=== PATIENT | female | born 1955 | race Caucasian/White ===

== ENCOUNTER 2024-03-23 12:53 | Inpatient (IN) | payer MEDICARE, OTHER, SELFPAY ==
[2024-03-23] VITALS (11 sets, daily range): BP systolic 94–125; BP diastolic 45–96; BMI 22.7
[2024-03-23 09:36] LABS: Glucose - Point of Care 100 mg/dl (70-99)
--- NOTE | 2024-03-23 09:51 | ED.GENMED ---
History of Present Illness
General
Chief Complaint: Blood Sugar Problem
Source: patient
Exam Limitations: none
Time Seen by Provider: 03/23/24 09:30
History of Present Illness
History of Present Illness:
68-year-old female brought here by EMS from [facility] after staff at facility thought she was in cardiac arrest. They called EMS. They soon figured out that her blood sugar was very low. They administered oral glucose. She was
semiunresponsive upon EMS arrival but had. First sugar checked upon EMS arrival was 31. EMS gave D10 en route. She now has been alert since arriving here. No history of diabetes. She does have a history of dementia.
Phy Exam
Physical Exam
Physical Exam:
General: Well-developed female no acute respiratory distress
Neurologic: Alert no facial asymmetry following commands no drift on exam
Heart: Bradycardia but regular
Lungs: Clear no wheeze
Abdomen is soft nontender nondistended
Extremities: No cyanosis
Skin cool to the touch no rash
Course
Orders/Labs/Results
Orders:
Orders
03/23/24 09:41
CT Head W/o Iv Contrast Urgent
Comment:
Reason For Exam: confusion
03/23/24 09:42
Electrocardiogram (*1) Urgent
Reason for Study: Chest Pain
EKG- Treatment ONCE
03/23/24 09:48
Complete Blood Count/With Diff Urgent
Comprehensive Metabolic Panel Urgent
TSH Reflex To Free T4 Urgent
03/23/24 09:49
CR Chest Portable - 1 View Urgent
Comment:
Reason For Exam: weakness
Reason Study Needs to be Portable: Patient Unstable
03/23/24 10:08
Lactic Acid Q4H
Comment: CANCEL 2nd LACTIC ACID IF 1st LACTIC ACID IS LESS THAN 2
Blood Culture Urgent
[place] Source: Blood/Venous
Specimen Description:
03/23/24 10:09
Urinalysis Reflex To Culture Urgent
Date Specimen was Collected: 03/23/24
Time Specimen was Collected: 10:07
Urine Microscopic Reflex Cult Urgent
Urine Culture Urgent
[place] Source: U
Specimen Description:
Date Specimen was Collected: 03/23/24
Time Specimen was Collected: 10:07
03/23/24 12:12
Blood Culture Urgent
[place] Source: Blood/Venous
Specimen Description:
03/23/24 12:20
CefTRIAXone [Rocephin] 1,000 mg IV NOW STA
03/23/24 14:00
Lactic Acid Q4H
Comment: CANCEL 2nd LACTIC ACID IF 1st LACTIC ACID IS LESS THAN 2
Abnormal Lab Results
03/23/24 03/23/24 03/23/24
09:34 09:48 10:08
RBC 3.57 L 10^6/uL
(4.20-5.40)
Hgb 11.9 L g/dL
(12.0-16.0)
Hct 36.5 L %
(37.0-47.0)
MCV 102.2 H fL
(81.0-99.0)
MCH 33.3 H pg
(27.0-31.0)
MCHC 32.6 L g/dL
(33.0-37.0)
MPV 11.0 H fL
(7.4-10.4)
Abs Immat Gran (auto) 0.1 H 10^3/uL
(0-0.05)
Absolute Lymphs (auto) 0.7 L 10^3/uL
(1.2-3.4)
Immature Gran % 1.0 H %
(0-0.5)
Neutrophils % 81.6 H %
(42.2-75.2)
Lymphocytes % 9.4 L %
(20.5-51.1)
BUN 32 H mg/dl
(7-17)
Glucose 231 H mg/dl
(70-99)
Lactic Acid 3.8 H mmol/L
(0.7-2.0)
Total Bilirubin < 0.1 L mg/dl
(0.2-1.3)
Urine Nitrite (Reflex)
Leukocyte Esterase Rfl
Urine Bacteria (Reflex)
Urine Glucose
POC Glucose 100 H mg/dl
(70-99)
03/23/24
10:09
RBC
Hgb
Hct
MCV
MCH
MCHC
MPV
Abs Immat Gran (auto)
Absolute Lymphs (auto)
Immature Gran %
Neutrophils %
Lymphocytes %
BUN
Glucose
Lactic Acid
Total Bilirubin
Urine Nitrite (Reflex) Positive A
(Negative)
Leukocyte Esterase Rfl Trace A
(Negative)
Urine Bacteria (Reflex) Many A
(Negative)
Urine Glucose 3+ A
(Negative)
POC Glucose
03/23/24 09:48
03/23/24 09:48
Vital Signs
Initial and Last Documented VS:
Initial Vital Signs
Pulse Resp BP Pulse Ox
58 20 125/77 99
03/23/24 09:31 03/23/24 09:31 03/23/24 09:31 03/23/24 09:31
Last Documented Vital Signs
Temp Pulse Resp BP Pulse Ox
92.1 F L 47 11 101/53 100
03/23/24 09:41 03/23/24 11:00 03/23/24 11:00 03/23/24 11:00 03/23/24 11:00
MDM/Problems Addressed
Differential Diagnosis Includes:
Patient with hypoglycemia status post oral glucose and D10 en route. Sugar now 100 at bedside. Patient is bradycardic she is hypothermic as well with a temperature of 92. Concern for underlying infectious source we will do so including blood
cultures urine culture chest x-ray CAT scan. TSH pending as well given the hypothermia and bradycardia.
No diabetic medication noted on list to be a cause of the hypoglycemia.
EKG done at bedside shows sinus bradycardia with a rate of 51 no ischemic changes
*Critical Care Note
Total Time (30-74mins, 75-104mins- exclusive of procedures): Not Applicable
Update Note
Update Note:
Recheck sugar improved. Patient's rectal temperature was hypothermic. Urinalysis suspicious for UTI. CT head shows possible hydrocephalus. X-ray of chest negative. Patient at neurologic baseline. Rocephin ordered for UTI will admit to hospital
for hypothermia, hypoglycemia and UTI
ED Attending Note
-
Portions of this chart may have been created with voice recognition software.� Occasional wrong word or��sound alike� substitutions may have occurred due to the inherent limitations of voice recognition software.
Discharge Plan
Departure
Patient Disposition: Admit
Date of Disposition: 03/23/24
Time of Disposition: 12:22
Admit to: IMU
Presentation/result/management discussed w/ accepting MD/DO: Hospitalist
Discharge Problem:
Hypothermia, Hypoglycemia, Acute UTI
Prescriptions:
No Action
cyclobenzaprine [Flexeril] 10 mg Tablet
10 mg PO TIDPRN PRN (Reason: muscle spasms)
acetaminophen [Tylenol] 325 mg Tablet
650 mg PO Q4HPRN PRN (Reason: mild pain)
acetaminophen [Tylenol] 325 mg Tablet
650 mg PO Q6HPRN PRN (Reason: moderate pains)
meloxicam [Mobic] 15 mg Tablet
15 mg PO DAILY
valacyclovir 500 mg Tablet
500 mg PO DAILY
lorazepam 0.5 mg Tablet
0.5 mg PO DAILYPRN PRN (Reason: anxiety)
calcium carbonate [Calcium 500] 500 mg calcium (1,250 mg) Tablet
500 mg PO DAILY
valproic acid (as sodium salt) 250 mg/5 mL Solution
100 mg PO TID
levothyroxine [Synthroid] 50 mcg Tablet
50 mcg PO DAILY
venlafaxine 37.5 mg Tablet
37.5 mg PO Q48H
Rx Instructions:
take until 03/28/24
lisinopril 10 mg Tablet
10 mg PO DAILY
mirtazapine [Remeron] 15 mg Tablet
15 mg PO HS
memantine 5 mg Tablet
10 mg PO DAILY
melatonin 5 mg Tablet
5 mg PO HS
cholecalciferol (vitamin D3) [Vitamin D3] 50 mcg (2,000 unit) Tablet
50 mcg PO DAILY
Referrals:
Robbie Martinez I., DO [Family Provider] -
Interventions
Interventions:
*Risk Screen - Suicide Last Done: 03/23/24 09:31
*General Assessment Last Done: 03/23/24 09:31
*Neglect/Abuse Screening Last Done: 03/23/24 09:31
*ED COVID-19 Vaccine History Last Done: 03/23/24 11:35
Discharge Date and Time
Print Language: VIETNAMESE
[2024-03-23 09:57] LABS: % Basophils 0.4 % (0-2); % Lymphocytes 9.4 % (20.5-51.1); % Monocytes 7.6 % (1.7-9.3); % Neutrophils 81.6 % (42.2-75.2); Absolute Immature Granulocytes 0.1 10^3/uL (0-0.05); Absolute Lymphocytes 0.7 10^3/uL (1.2-3.4); Absolute Monocytes 0.6 10^3/uL (0.1-0.6); Absolute Neutrophils 6.4 10^3/uL (1.4-6.5); Hematocrit 36.5 % (37.0-47.0); Hemoglobin 11.9 g/dL (12.0-16.0); Mean Corp Hgb Conc. 32.6 g/dL (33.0-37.0); Mean Corpuscular Hgb 33.3 pg (27.0-31.0); Mean Corpuscular Volume 102.2 fL (81.0-99.0); Nucleated Red Blood Cells % 0 %; Platelet Count 221 10^3/uL (130-400); Red Blood Cell Count 3.57 10^6/uL (4.20-5.40); Red Cell Dist. Width 11.8 % (11.5-14.5); White Blood Cell Count 7.8 10^3/uL (4.8-10.8)
[2024-03-23 10:10] LABS: ALT (SGPT) 15 U/L (0-35); AST (SGOT) 24 U/L (14-36); Albumin 3.8 g/dl (3.5-5.0); Alkaline Phosphatase 71 U/L (38-126); Blood Urea Nitrogen 32 mg/dl (7-17); Calcium 8.8 mg/dl (8.4-10.2); Carbon Dioxide 25 mmol/L (22-30); Chloride 104 mmol/L (98-107); Glucose 231 mg/dl (70-99); Potassium 3.7 mmol/L (3.5-5.1); Sodium 141 mmol/L (135-145); Total Bilirubin < 0.1 mg/dl (0.2-1.3); Total Protein 6.6 g/dl (6.3-8.2); eGFR > 60.00
[2024-03-23 10:26] LABS: Lactic Acid 3.8 mmol/L (0.7-2.0)
[2024-03-23 10:41] LABS: TSH Reflex To Free T4 4.65 uIU/ml (0.47-4.68)
[2024-03-23 10:44] LABS: Urine Albumin Negative (Neg - Trace); Urine Bilirubin Negative (Negative); Urine Character Clear (Clear); Urine Color Yellow; Urine Glucose 3+ (Negative); Urine Ketone Negative (Negative); Urine Leukocyte Trace (Negative); Urine Nitrite Positive (Negative); Urine Occult Blood Negative (Negative); Urine Urobilinogen Negative (Neg - 1+)
[2024-03-23 10:58] LABS: Urine Bacteria Many (Negative); Urine Red Blood Cell 0-2 /HPF (0-2); Urine Squamous Cell 16-20 /LPF (Few)
--- NOTE | 2024-03-23 12:52 | HPS.HSE ---
Family Physician
-
Family Physician: Robbie Martinez
Chief Complaint
-
unresponsiveness
History of Present Illness
68-year-old female past medical history of dementia, anxiety/depression, spinal stenosis, hypertension, hypothyroidism, chronic anemia, presenting from [facility] after she was found unresponsive and staff thought that she was in
cardiac arrest. Chest compressions were performed briefly until staff noticed that she was hypoglycemic with blood sugar of 31. Oral glucose was administered. She was semiunresponsive upon EMS arrival. EMS noted blood sugar of 31. D10 was given
en route. Patient complaining of urinary symptoms but otherwise denying any other symptoms although she is a very poor historian.
No history of diabetes.
Medical History
Past Medical History
Past Medical History: Reports Other (dementia, anxiety/depression, spinal stenosis, hypertension, hypothyroidism, chronic anemia)
Past Surgical History: Reports None
Social History
Tobacco: Non-smoker
Alcohol: None
Drug: None
Family History
Family History: Not pertinent
Allergies / Home Medications
Allergies reflects when Allergies were last updated in [facility].
Home Medications with original date entered in [facility]
Allergy/Medication List:
Allergies
Allergy/AdvReac Type Severity Reaction Status Date / Time
No Known Allergies Allergy Verified 03/23/24 09:41
Home Medications
acetaminophen 325 mg tablet (Tylenol) 650 mg PO Q4HPRN PRN mild pain 03/23/24
acetaminophen 325 mg tablet (Tylenol) 650 mg PO Q6HPRN PRN moderate pains 03/23/24
calcium carbonate 500 mg PO DAILY 03/23/24
cholecalciferol (vitamin D3) 50 mcg (2,000 unit) tablet (Vitamin D3) 50 mcg PO DAILY 03/23/24
cyclobenzaprine 10 mg tablet 10 mg PO TIDPRN PRN muscle spasms 03/23/24
levothyroxine 50 mcg tablet (Synthroid) 50 mcg PO DAILY 03/23/24
lisinopril 10 mg tablet 10 mg PO DAILY 03/23/24
lorazepam 0.5 mg tablet 0.5 mg PO DAILYPRN PRN anxiety 03/23/24
melatonin 5 mg tablet 5 mg PO HS 03/23/24
meloxicam 15 mg tablet 15 mg PO DAILY 03/23/24
memantine 5 mg tablet 10 mg PO DAILY 03/23/24
mirtazapine 15 mg tablet (Remeron) 15 mg PO HS 03/23/24
valacyclovir 500 mg tablet 500 mg PO DAILY 03/23/24
valproic acid (as sodium salt) 250 mg/5 mL oral solution 100 mg PO TID 03/23/24
venlafaxine 37.5 mg tablet 37.5 mg PO Q48H 03/23/24
Review of Systems
-
History Source: Patient
A 12 point ROS was completed and negative except as noted: Yes
Constitutional: Reports No Symptoms
EENT: Reports No Symptoms
Respiratory: Reports No Symptoms
Cardiac: Reports No Symptoms
Abdomen/GI: Reports No Symptoms
: Reports No Symptoms
Musculoskeletal: Reports No Symptoms
Skin: Reports No Symptoms
Neurological: Reports No Symptoms
Endocrine: Reports No Symptoms
Hematologic/Lymphatic: Reports No Symptoms
Psych: Reports No Symptoms
Physical Exam
Vital Signs
Vital Signs
Temp Pulse Resp BP Pulse Ox
93 F L 47 11 101/53 100
03/23/24 12:00 03/23/24 11:00 03/23/24 11:00 03/23/24 11:00 03/23/24 11:00
Physical Exam
General: Well Developed, Well Nourished and No Apparent Distress
HEENT: NormoCephalic, Moist mucous membranes and Atraumatic
Respiratory: Clear
Cardiac: S1/S2 and Regular Rhythm; No Murmur or Rub
GI: Soft, Non Tender, Non Distended, Normal Bowel Sounds and Tender (suprapubic ); No Organomegaly
Rectal: Deferred by Provider
Musculoskeletal: No Clubbing, No Cyanosis and No Edema
Skin: No Rash
Neuro: Nonfocal/grossly intact
Laboratory Results
-
03/23/24 09:48
03/23/24 09:48
Laboratory Results
Lactic Acid 3.8 mmol/L (0.7-2.0) H 03/23/24 10:08
Total Bilirubin < 0.1 mg/dl (0.2-1.3) L 03/23/24 09:48
AST 24 U/L (14-36) 03/23/24 09:48
ALT 15 U/L (0-35) 03/23/24 09:48
Alkaline Phosphatase 71 U/L (38-126) 03/23/24 09:48
Data Reviewed
-
Lab Data: Labs Reviewed by me
Old Records: Reviewed
Impression/Plan
-
IMPRESSION:
PLAN:
# Hypoglycemia possibly secondary to UTI
# Hypothermia/sinus bradycardia secondary to hypoglycemia
-No documented history of diabetes or diabetic medications
-Blood sugar of 100 then 230 here
-Accu-Cheks every hour for now and can decrease frequency once blood sugar stable
-Chest x-ray unremarkable
-CT head shows no acute abnormality
-Urinalysis with positive nitrates, trace leukocyte esterase but clear urine with only 6-10 WBC and urinary symptoms with suprapubic tenderness
-Lactic acid 3.8, trend lactate
-IV fluids
-On Adrian hugger
-Blood cultures pending
-Check TSH, cortisol level
# Urinary tract infection
-Patient with urinary symptoms and suprapubic tenderness
-Ceftriaxone
Dementia
-Continue memantine
Anxiety/depression
-Continue mirtazapine, valproic acid, venlafaxine, Ativan
-No documented history of seizures
Chronic anemia
-stable
Hypothyroidism
-Continue levothyroxine
Essential hypertension
-Continue lisinopril
Spinal stenosis
-Continue cyclobenzaprine, meloxicam
Full code
DVT prophylaxis�heparin
Regular diet
[2024-03-23 13:30] LABS: Glucose - Point of Care 42 mg/dl (70-99)
[2024-03-23] MEDS: ROCEPHIN 1000 MG IV (13:41)
[2024-03-23] MEDS: NSS 250 IV (13:41)
[2024-03-23 13:48] LABS: Glucose - Point of Care 38 mg/dl (70-99)
[2024-03-23] MEDS: DEXTROSE 50% SYRINGE 25 GRAMS IV (13:54)
[2024-03-23 14:27] LABS: Glucose - Point of Care 124 mg/dl (70-99)
[2024-03-23 14:37] LABS: Cortisol, Random 36.6 ug/dl
[2024-03-23 14:56] LABS: Glucose - Point of Care 119 mg/dl (70-99)
[2024-03-23] MEDS: ATIVAN 0.5 MG PO (15:13)
[2024-03-23] MEDS: EFFEXOR 37.5 MG PO (15:14)
[2024-03-23] MEDS: DEPAKENE 100 MG PO ×2 (15:15→22:08)
[2024-03-23] MEDS: D5/0.9% SODIUM CHLORIDE 1000 IV (15:18)
[2024-03-23 16:44] LABS: Glucose - Point of Care 107 mg/dl (70-99)
--- NOTE | 2024-03-23 17:38 | PTCARENOTE ---
Patient is very confused only oriented to self only. She is hallucinating and is agitated. At the moment she can't be reoriented or redirected. Constantly trying to climb out of bed, activating bed alarm. Upon arrival from ED medicated her with
po ativan with little help. Notified attending order obtained for restraints and haldol. IV fluids infusing as ordered via right ac site. Blood sugars have been above 100. Temperatures have been normal. Will monitor frequently.
[2024-03-23 17:40] LABS: Lactic Acid 3.5 mmol/L (0.7-2.0)
[2024-03-23] MEDS: HALDOL 1 MG IV (18:02)
[2024-03-23 18:57] LABS: Glucose - Point of Care 123 mg/dl (70-99)
[2024-03-23] MEDS: HEPARIN 5000 UNITS SC (19:43)
[2024-03-23 20:16] LABS: Glucose - Point of Care 77 mg/dl (70-99)
[2024-03-23 21:29] LABS: Glucose - Point of Care 87 mg/dl (70-99)
[2024-03-23] MEDS: MELATONIN 5 MG PO (22:08)
[2024-03-23 22:12] LABS: Glucose - Point of Care 86 mg/dl (70-99)
[2024-03-23 23:13] LABS: Glucose - Point of Care 97 mg/dl (70-99)
[2024-03-24] VITALS (14 sets, daily range): BP systolic 92–147; BP diastolic 50–117; BMI 23.0
[2024-03-24 00:20] LABS: Glucose - Point of Care 68 mg/dl (70-99)
[2024-03-24] MEDS: D10W 1000 IV ×2 (00:47→16:58)
[2024-03-24 01:15] LABS: Glucose - Point of Care 96 mg/dl (70-99)
[2024-03-24 02:18] LABS: Glucose - Point of Care 99 mg/dl (70-99)
[2024-03-24 03:15] LABS: Glucose - Point of Care 103 mg/dl (70-99)
[2024-03-24 03:21] LABS: Lactic Acid 2.1 mmol/L (0.7-2.0)
[2024-03-24 04:36] LABS: Glucose - Point of Care 106 mg/dl (70-99)
[2024-03-24] MEDS: HALDOL 1 MG IV (05:07)
[2024-03-24] MEDS: SYNTHROID 50 MCG PO (05:07)
[2024-03-24 05:09] LABS: % Basophils 0.3 % (0-2); % Eosinophils 0.3 % (0-6); % Immature Granulocytes 0.6 % (0-0.5); % Lymphocytes 14.8 % (20.5-51.1); % Monocytes 7.3 % (1.7-9.3); % Neutrophils 76.7 % (42.2-75.2); Absolute Basophils 0.1 10^3/uL (0-0.2); Absolute Eosinophils 0.1 10^3/uL (0-0.7); Absolute Immature Granulocytes 0.1 10^3/uL (0-0.05); Absolute Lymphocytes 2.3 10^3/uL (1.2-3.4); Absolute Monocytes 1.1 10^3/uL (0.1-0.6); Absolute Neutrophils 11.9 10^3/uL (1.4-6.5); Hematocrit 28.8 % (37.0-47.0); Hemoglobin 9.7 g/dL (12.0-16.0); Mean Corp Hgb Conc. 33.7 g/dL (33.0-37.0); Mean Corpuscular Volume 101.1 fL (81.0-99.0); Mean Platelet Volume 11.9 fL (7.4-10.4); Nucleated Red Blood Cells % 0 %; Platelet Count 199 10^3/uL (130-400); Red Blood Cell Count 2.85 10^6/uL (4.20-5.40); Red Cell Dist. Width 11.9 % (11.5-14.5); White Blood Cell Count 15.5 10^3/uL (4.8-10.8)
[2024-03-24 05:15] LABS: ALT (SGPT) 13 U/L (0-35); AST (SGOT) 23 U/L (14-36); Alkaline Phosphatase 58 U/L (38-126); Blood Urea Nitrogen 20 mg/dl (7-17); Calcium 8.7 mg/dl (8.4-10.2); Carbon Dioxide 26 mmol/L (22-30); Chloride 107 mmol/L (98-107); Estimated Creatinine Clearance 70 ml/min; Glucose 101 mg/dl (70-99); Potassium 3.9 mmol/L (3.5-5.1); Sodium 141 mmol/L (135-145); Total Bilirubin 0.1 mg/dl (0.2-1.3); Total Protein 5.8 g/dl (6.3-8.2); eGFR > 60.00
[2024-03-24 05:26] LABS: Glucose - Point of Care 72 mg/dl (70-99)
[2024-03-24 06:17] LABS: Glucose - Point of Care 84 mg/dl (70-99)
[2024-03-24 06:57] LABS: Lactic Acid 1.5 mmol/L (0.7-2.0)
[2024-03-24 07:34] LABS: Glucose - Point of Care 69 mg/dl (70-99)
[2024-03-24 07:53] LABS: Glucose - Point of Care 61 mg/dl (70-99)
[2024-03-24] MEDS: DEXTROSE 50% SYRINGE 12.5 GRAMS IV ×4 (08:09→12:29)
[2024-03-24 08:17] LABS: Glucose - Point of Care 70 mg/dl (70-99)
[2024-03-24 08:46] LABS: Glucose - Point of Care 133 mg/dl (70-99)
[2024-03-24] MEDS: VITAMIN D3 (cholecalciferol) 50 MCG PO (08:56)
[2024-03-24] MEDS: OSCAL CAL 500 500 MG PO (08:56)
[2024-03-24] MEDS: MOBIC 15 MG PO (08:57)
[2024-03-24] MEDS: DEPAKENE 100 MG PO ×3 (08:57→21:32)
[2024-03-24] MEDS: VALTREX 500 MG PO (08:57)
[2024-03-24] MEDS: NAMENDA 10 MG PO (08:57)
[2024-03-24] MEDS: HEPARIN 5000 UNITS SC ×2 (08:57→20:10)
[2024-03-24 09:23] LABS: Glucose - Point of Care 56 mg/dl (70-99)
[2024-03-24 09:43] LABS: Glucose - Point of Care 78 mg/dl (70-99)
--- NOTE | 2024-03-24 09:55 | PTCARENOTE ---
Assumed care of patient at beginnig of this shift from previous RN. Per report patient had several accu checks overnight requiring intervention; currently has D10 infusing at 60ml/hr. Initial accu check this shift was 69; patient given orange juice
as per protocol. Recheck was 61; another orange juice given to patient. Dr Fair notified and instructed to give 1/2 amp D50. Follow up accu checks were 70 at 08:06 and 133 at 08:35. Accu check at 09:11 was 56. Blood sugar rechecked for accuracy
and was 92 as she had juice prior to the 56. Patient then received breakfast and had 2 juices as well as pudding with morning medications. Accu check 78 at 09:31.
--- NOTE | 2024-03-24 10:08 | CM ---
Patient from [facility] with Hx dementia with Dx Hypoglycemia, UTI. Room air. Receiving IVF, IV Abx, IV Haldol prn. Per nursing; confused, restraints.
Spoke with [facility];
the patient resides there in LTC on an AK bed hold.
She is A/O x1 at baseline.
The patient is assisted with ADLs and ambulatory without using an assistive device.
She was not receiving PT/OT.
Spoke with Thomas Butts, Court Appointed Guardian;
He stated he will not indicate if he agrees with the patient returning to [facility] when she is medically ready, as he expects CM to call him when closer to d/c and he will indicate at that time if he agrees to the patient returning to [facility]
and if he agrees to d/c at that time. Attempted to explain that if there is any issue with the patient returning to [facility] that the CM needs to know in advance, so as to work with him on choosing another facility. He states he will not agree
to anything in advance as he had another case in which a CM did not contact him about a patient leaving the hospital and therefore he will not agree to anything for this patient.
Renea Velazquez, CM Director informed that Court Appointed Guardian refused to indicate if he would agree with patient returning to [facility] when she is medically ready for d/c.
Plan contact Court Appointed Guardian when medically ready for d/c for permission to return patient to [facility].
[2024-03-24 10:14] LABS: Depakane 38.6 ug/ml (50.0-120.0)
[2024-03-24 10:52] LABS: Glucose - Point of Care 41 mg/dl (70-99)
--- NOTE | 2024-03-24 10:58 | PTCARENOTE ---
Accu check 41. Dr Fair notified and order given for another 1/2 amp D50 ordered and given. Patient was drowsy but arousable. Follow up glucose 113.
[2024-03-24 11:12] LABS: Glucose - Point of Care 113 mg/dl (70-99)
[2024-03-24] MEDS: ZESTRIL PO (11:31)
[2024-03-24] MEDS: STERILE WATER FOR INJECTION 10 ML IV (11:48)
[2024-03-24] MEDS: ROCEPHIN 1000 MG IV (11:48)
[2024-03-24 12:10] LABS: Glucose - Point of Care 44 mg/dl (70-99)
--- NOTE | 2024-03-24 12:18 | PTCARENOTE ---
Addendum entered by Ana Laura Lee RN 03/24/24 17:42:
No call from chemistry needing further lab samples.
Original Note:
Accu check 44; 1/2 amp D50 given and Dr Fair updated. 15 minute post check 130. Dr Fair up on unit and made aware; instructed to give another 1/2 amp. Octreotide ordered; confirmed with pharmacy they will send. Enma from chemistry called
to verify lab ordered was to test for a specific med or full panel. Dr Fair confirmed that it is a plasma panel. This nurse called and updated Enma who will run panel. She stated she will call unit only if needing another lab sample.
[2024-03-24] MEDS: DEXTROSE 50% SYRINGE IV (12:25)
[2024-03-24] MEDS: SANDOSTATIN 50 MCG IV (12:25)
[2024-03-24 12:29] LABS: Glucose - Point of Care 130 mg/dl (70-99)
[2024-03-24 12:29] LABS: Glycohemoglobin (HgbA1c) 5.1 % (4.0-5.6)
[2024-03-24 12:57] LABS: Glucose - Point of Care 128 mg/dl (70-99)
[2024-03-24 13:43] LABS: Glucose - Point of Care 62 mg/dl (70-99)
[2024-03-24 14:08] LABS: Glucose - Point of Care 70 mg/dl (70-99)
--- NOTE | 2024-03-24 14:21 | W.PN.HOSP.TC ---
Today's Communication/Plan
-
Close blood glucose monitoring.
Workup for hypoglycemia
IV antibiotics pending cultures.
Protective interventions/restraints
Assessment / Plan
Assessment / Plan
Impression:
Toxic metabolic encephalopathy secondary to UTI and hypoglycemia.
Hypoglycemia with transient hypothermia, sinus bradycardia, hypotension.
UTI with concern for sepsis.
Lactic acidosis.
Other conditions:
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
Anxiety/depression
Hypothyroidism on replacement
Anemia of chronic disease
Essential hypertension
Spinal stenosis.
Plan
Toxic metabolic encephalopathy suspect multifactorial due to UTI with concern for sepsis and hypoglycemia
Mental status improved and back to baseline patient is oriented to only name
Follow-up episode of agitation, currently improved and calm.
CT head without acute abnormalities.
Hypoglycemia been corrected.
UTI with concern for sepsis
Reported transient hypothermia, hypoglycemia
Noted elevated white count of 15.5.
Positive UA pending culture (preliminary gram-negative bacteria)
Blood cultures pending.
Continue empiric antibiotics/ceftriaxone pending final cultures
Monitor for urinary retention.
Improved hypothermia
TSH within normal limits.
Continue levothyroxine
No evidence of CHF clinically and radiologically.
Persistent hypoglycemia.
Normal cortisol and TSH level.
Appears to be hemodynamically stable
No prior history of diabetes
Not on any possible glucose lowering medications hold once that glucose hypoglycemic side effect
Check serum sulfonylurea panel.
Check C-peptide level.
Empiric treatment with Sandostatin
Continue blood glucose monitoring every hour
Continue D50 as needed and D10 infusion
Dementia, anxiety, depression
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 Not clear if he has a history of seizures or this used for behavioral disturbances.
Depakote level 38.6 on admission. Continue preadmission dose.
Continue memantine
Continue protective intervention, restraints. Wean off Haldol.
Continue mirtazapine, tamoxifen, Ativan.
Hypertension
Holding parameters for hypotension on lisinopril.
Spinal stenosis: Continue cyclobenzaprine and hold meloxicam
DVT prophylaxis heparin
Full code
Anticipated Discharge: 24 - 48 hours
Subjective/Interval History
-
Date of Service: March 24, 2024
Objective Data
-
Labs:
Laboratory Results
03/24/24
04:24
WBC 15.5 H
Hgb 9.7 L
Hct 28.8 L
Plt Count 199
Sodium 141
Potassium 3.9
Chloride 107
Carbon Dioxide 26
BUN 20 H
Creatinine 0.7
Glucose 101 H
Calcium 8.7
Total Bilirubin 0.1 L
AST 23
ALT 13
Alkaline Phosphatase 58
Vital Signs:
Vital Signs
Temp Pulse Resp BP Pulse Ox
97.8 F 64 12 104/51 99
03/24/24 11:00 03/24/24 12:00 03/24/24 12:00 03/24/24 12:00 03/24/24 12:00
I&O
03/23/24 03/24/24 03/25/24
06:59 06:59 06:59
Intake Total 2320 / 2320
Balance 2320 / 2320
Physical Exam
-
General: Well Developed and No Apparent Distress
HEENT: Normocephalic, Atraumatic and Moist Mucous Membranes
Respiratory: Clear to Auscultation
Cardiac: Regular Rhythm and S1/S2; Negative Murmur, Rub or Gallop
GI: Soft, Nontender, Nondistended and Normal Bowel Sounds; Negative Organomegaly
Rectal: Deferred by Provider
Musculoskeletal: No Clubbing, No Cyanosis and No Edema
Skin: Negative Rash
Neuro: Awake, Alert, Oriented (To name only) and Nonfocal/Grossly Intact
[2024-03-24 15:11] LABS: Glucose - Point of Care 105 mg/dl (70-99)
[2024-03-24 16:23] LABS: Glucose - Point of Care 157 mg/dl (70-99)
[2024-03-24 17:15] LABS: Glucose - Point of Care 128 mg/dl (70-99)
--- NOTE | 2024-03-24 17:52 | PTCARENOTE ---
This nurse spoke with Erin, nurse from [facility], who stated she sent a packet with patient when she was transferred to this hospital. No packet is in her chart. Erin stated she would fax over to our unit; fax number provided.
[2024-03-24 18:12] LABS: Glucose - Point of Care 93 mg/dl (70-99)
[2024-03-24 19:21] LABS: Glucose - Point of Care 119 mg/dl (70-99)
--- NOTE | 2024-03-24 20:19 | PTCARENOTE ---
Pt received from dayshift RN. Pt confused, alert to self, can answer yes and no appropriately, pleasant and cooperative. Q1 glucose maintained. Not needing hypoglycemic tx thus far during this RN's shift. Pt inc urine. PW in use. B/L wrist
restraints maintained, per order. Call light in reach. Assessment as documented.
[2024-03-24 20:20] LABS: Glucose - Point of Care 94 mg/dl (70-99)
[2024-03-24 21:17] LABS: Glucose - Point of Care 66 mg/dl (70-99)
[2024-03-24] MEDS: MELATONIN 5 MG PO (21:32)
[2024-03-24 21:39] LABS: Glucose - Point of Care 121 mg/dl (70-99)
[2024-03-24 22:06] LABS: Glucose - Point of Care 102 mg/dl (70-99)
[2024-03-24 23:07] LABS: Glucose - Point of Care 102 mg/dl (70-99)
[2024-03-25] VITALS (11 sets, daily range): BP systolic 107–137; BP diastolic 58–91; BMI 22.8
[2024-03-25 00:05] LABS: Glucose - Point of Care 74 mg/dl (70-99)
[2024-03-25 01:09] LABS: Glucose - Point of Care 117 mg/dl (70-99)
[2024-03-25 02:05] LABS: Glucose - Point of Care 120 mg/dl (70-99)
[2024-03-25] MEDS: D10W 1000 IV ×2 (02:29→12:11)
[2024-03-25 03:06] LABS: Glucose - Point of Care 108 mg/dl (70-99)
[2024-03-25 04:10] LABS: Glucose - Point of Care 94 mg/dl (70-99)
[2024-03-25 05:05] LABS: % Basophils 0.6 % (0-2); % Eosinophils 3.1 % (0-6); % Immature Granulocytes 0.5 % (0-0.5); % Lymphocytes 21.6 % (20.5-51.1); % Monocytes 11.4 % (1.7-9.3); % Neutrophils 62.8 % (42.2-75.2); Absolute Basophils 0.1 10^3/uL (0-0.2); Absolute Eosinophils 0.4 10^3/uL (0-0.7); Absolute Immature Granulocytes 0.1 10^3/uL (0-0.05); Absolute Lymphocytes 2.7 10^3/uL (1.2-3.4); Absolute Monocytes 1.4 10^3/uL (0.1-0.6); Absolute Neutrophils 7.8 10^3/uL (1.4-6.5); Hematocrit 34.3 % (37.0-47.0); Hemoglobin 11.5 g/dL (12.0-16.0); Mean Corp Hgb Conc. 33.5 g/dL (33.0-37.0); Mean Corpuscular Volume 101.5 fL (81.0-99.0); Mean Platelet Volume 11.3 fL (7.4-10.4); Nucleated Red Blood Cells % 0 %; Platelet Count 200 10^3/uL (130-400); Red Blood Cell Count 3.38 10^6/uL (4.20-5.40); Red Cell Dist. Width 11.8 % (11.5-14.5); White Blood Cell Count 12.4 10^3/uL (4.8-10.8)
[2024-03-25 05:12] LABS: Glucose - Point of Care 66 mg/dl (70-99)
[2024-03-25] MEDS: SYNTHROID 50 MCG PO (05:23)
[2024-03-25 05:29] LABS: ALT (SGPT) 15 U/L (0-35); AST (SGOT) 26 U/L (14-36); Albumin 3.2 g/dl (3.5-5.0); Alkaline Phosphatase 62 U/L (38-126); Blood Urea Nitrogen 21 mg/dl (7-17); Carbon Dioxide 32 mmol/L (22-30); Chloride 104 mmol/L (98-107); Estimated Creatinine Clearance 61 ml/min; Glucose 99 mg/dl (70-99); Potassium 4.4 mmol/L (3.5-5.1); Sodium 142 mmol/L (135-145); Total Bilirubin 0.3 mg/dl (0.2-1.3); eGFR > 60.00
[2024-03-25 05:33] LABS: Glucose - Point of Care 87 mg/dl (70-99)
--- NOTE | 2024-03-25 05:37 | PTCARENOTE ---
pts 5am glucose was 66, pt given 40z of juice per protocol. 15 minute recheck was 87. pt remains awake and alert.
[2024-03-25 06:08] LABS: Glucose - Point of Care 69 mg/dl (70-99)
[2024-03-25 06:46] LABS: Glucose - Point of Care 103 mg/dl (70-99)
[2024-03-25 07:13] LABS: Glucose - Point of Care 92 mg/dl (70-99)
[2024-03-25 08:14] LABS: Glucose - Point of Care 44 mg/dl (70-99)
[2024-03-25] MEDS: VITAMIN D3 (cholecalciferol) 50 MCG PO (08:28)
[2024-03-25] MEDS: ZESTRIL 10 MG PO (08:28)
[2024-03-25] MEDS: NAMENDA 10 MG PO (08:28)
[2024-03-25] MEDS: DEPAKENE 100 MG PO ×3 (08:28→21:50)
[2024-03-25] MEDS: HEPARIN 5000 UNITS SC ×2 (08:28→19:45)
[2024-03-25] MEDS: OSCAL CAL 500 500 MG PO (08:28)
[2024-03-25] MEDS: VALTREX 500 MG PO (08:28)
[2024-03-25 08:35] LABS: Glucose - Point of Care 55 mg/dl (70-99)
[2024-03-25] MEDS: DEXTROSE 50% SYRINGE 12.5 GRAMS IV ×2 (08:53→12:07)
[2024-03-25 09:02] LABS: Glucose - Point of Care 29 mg/dl (70-99)
--- NOTE | 2024-03-25 09:23 | PTCARENOTE ---
Assumed care of pt from parole agent RN. AAOx1. Oriented only to self. Pt drowsy but arousable to voice. Fingerstick glucose at 0802 resulted at 44mg/dl. 4oz of orange juice given as treatment. Repeat fingerstick glucose 15 minutes after treatment
resulted at 55mg/dl. 4oz of orange juice given again as additional treatment. Fingerstick glucose result 15 minutes after additional treatment resulted at 29mg/dl. Dr. Fair aware. 12.5 grams 50% Dextrose IV given as treatment. Repeat fingerstick
glucose 15 mins after treatment resulted 144mg/dl. Pt resting in bed at this time. B/L soft wrist restraints remain on at this time and 4 side rails up. VSS. Assessment documented.
[2024-03-25 09:30] LABS: Glucose - Point of Care 144 mg/dl (70-99)
[2024-03-25 10:29] LABS: Glucose - Point of Care 71 mg/dl (70-99)
[2024-03-25 11:30] LABS: Glucose - Point of Care 91 mg/dl (70-99)
[2024-03-25] MEDS: ROCEPHIN 1000 MG IV (11:49)
[2024-03-25] MEDS: STERILE WATER FOR INJECTION 10 ML IV (11:50)
[2024-03-25 12:17] LABS: Glucose - Point of Care 64 mg/dl (70-99)
[2024-03-25 12:51] LABS: Glucose - Point of Care 99 mg/dl (70-99)
[2024-03-25 13:28] LABS: Glucose - Point of Care 77 mg/dl (70-99)
[2024-03-25] MEDS: SANDOSTATIN 50 MCG IV (13:46)
[2024-03-25] MEDS: CORTROSYN 0.25 MG IV (14:05)
[2024-03-25] MEDS: NSS (PRESERVATIVE FREE) 1 ML IV (14:05)
[2024-03-25] MEDS: EFFEXOR 37.5 MG PO (14:13)
[2024-03-25 14:21] LABS: Glucose - Point of Care 78 mg/dl (70-99)
[2024-03-25 15:06] LABS: ACTH Stim Cortisol 0 Min 7.1 ug/dl
[2024-03-25 15:15] LABS: Glucose - Point of Care 114 mg/dl (70-99)
[2024-03-25 16:16] LABS: Glucose - Point of Care 244 mg/dl (70-99)
--- NOTE | 2024-03-25 16:32 | W.PN.HOSP.TC ---
Today's Communication/Plan
-
Remains hypoglycemic and relatively asymptomatic (hard to assess given dementia)
Ongoing workup with C-peptide, serum sulfonylurea pending.
Stable oral intake
Continue D10 infusion with D50 IV for severe hypoglycemia.
Repeat Sandostatin second dose today 50 mcg given.
Follow serial Accu-Cheks.
ACTH stim test
Ultrasound of the abdomen to look at the liver architecture (so far no evidence of hepatic dysfunction)
If remains persistently hypoglycemic, will do further workup including proinsulin/insulin levels at the time of hypoglycemia.
May require additional abdominal imaging along with lab workup.
Assessment / Plan
Assessment / Plan
Impression:
Toxic metabolic encephalopathy secondary to UTI and hypoglycemia.
Hypoglycemia with transient hypothermia, sinus bradycardia, hypotension.
UTI with concern for sepsis.
Lactic acidosis.
Other conditions:
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
Anxiety/depression
Hypothyroidism on replacement
Anemia of chronic disease
Essential hypertension
Spinal stenosis.
Plan
Toxic metabolic encephalopathy suspect multifactorial due to UTI with concern for sepsis and hypoglycemia
Mental status improved and back to baseline patient is oriented to only name
Follow-up episode of agitation, currently improved and calm.
CT head without acute abnormalities.
Hypoglycemia been corrected.
UTI with concern for sepsis
Reported transient hypothermia, hypoglycemia
Noted elevated white count of 15.5.
Urine culture with Klebsiella
Blood cultures negative to date
Continue empiric antibiotics/ceftriaxone pending final cultures
Monitor for urinary retention.
Improved hypothermia
TSH within normal limits.
Continue levothyroxine
No evidence of CHF clinically and radiologically.
Persistent hypoglycemia.
Normal cortisol and TSH level.
Appears to be hemodynamically stable
No prior history of diabetes
Not on any possible glucose lowering medications hold once that glucose hypoglycemic side effect
Check serum sulfonylurea panel.
Check C-peptide level.
Empiric treatment with Sandostatin
Continue blood glucose monitoring every hour
Continue D50 as needed and D10 infusion
Dementia, anxiety, depression
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 Not clear if he has a history of seizures or this used for behavioral disturbances.
Depakote level 38.6 on admission. Continue preadmission dose.
Continue memantine
Continue protective intervention, restraints. Wean off Haldol.
Continue mirtazapine, tamoxifen, Ativan.
Hypertension
Holding parameters for hypotension on lisinopril.
Spinal stenosis: Continue cyclobenzaprine and hold meloxicam
DVT prophylaxis heparin
Full code
Anticipated Discharge: > 48 hours
Subjective/Interval History
-
Date of Service: March 25, 2024
Objective Data
-
Labs:
Laboratory Results
03/25/24
04:46
WBC 12.4 H
Hgb 11.5 L
Hct 34.3 L
Plt Count 200
Sodium 142
Potassium 4.4
Chloride 104
Carbon Dioxide 32 H
BUN 21 H
Creatinine 0.8
Glucose 99
Calcium 9.0
Total Bilirubin 0.3
AST 26
ALT 15
Alkaline Phosphatase 62
Vital Signs:
Vital Signs
Temp Pulse Resp BP Pulse Ox
98.7 F 69 14 118/62 99
03/25/24 15:55 03/25/24 16:00 03/25/24 16:00 03/25/24 14:00 03/25/24 16:00
I&O
03/24/24 03/25/24 03/26/24
06:59 06:59 06:59
Intake Total 2320 / 2320 1560 / 1560 300 / 300
Output Total 2750 / 2750 600 / 600
Balance 2320 / 2320 -1190 / -1190 -300 / -300
[2024-03-25 16:52] LABS: ACTH Stim Cortisol 60 Min 26.6 ug/dl
[2024-03-25 16:53] LABS: ACTH Stim Cortisol 30 Min 19.9 ug/dl
[2024-03-25 17:23] LABS: Glucose - Point of Care 193 mg/dl (70-99)
[2024-03-25 18:14] LABS: Glucose - Point of Care 167 mg/dl (70-99)
[2024-03-25 19:25] LABS: Glucose - Point of Care 224 mg/dl (70-99)
[2024-03-25 20:12] LABS: Glucose - Point of Care 207 mg/dl (70-99)
--- NOTE | 2024-03-25 21:15 | PTCARENOTE ---
Received patient from previous RN. Patient is confused and restless, alert to self. Patient does answer yes or no question but has confused conversation. Patient is corporative. Patient is on Q1 blood glucose checks, not needing hypoglycemic
treatment thus far on shift. Patient has a purewick due to incontinence. Patient is in bilateral wrist restraints, per order. Patient resting in bed with call matthews in reach. Assessment as documented.
[2024-03-25 21:16] LABS: Glucose - Point of Care 187 mg/dl (70-99)
[2024-03-25] MEDS: MELATONIN 5 MG PO (21:50)
[2024-03-25 22:09] LABS: Glucose - Point of Care 117 mg/dl (70-99)
[2024-03-25 23:18] LABS: Glucose - Point of Care 178 mg/dl (70-99)
[2024-03-25] MEDS: ATIVAN 0.5 MG PO (23:48)
[2024-03-26] VITALS (14 sets, daily range): BP systolic 89–137; BP diastolic 49–97; BMI 22.9
[2024-03-26 00:11] LABS: Glucose - Point of Care 124 mg/dl (70-99)
[2024-03-26] MEDS: D10W 1000 IV ×2 (01:01→11:18)
[2024-03-26 01:14] LABS: Glucose - Point of Care 118 mg/dl (70-99)
[2024-03-26 02:37] LABS: Glucose - Point of Care 129 mg/dl (70-99)
[2024-03-26 02:42] LABS: C-Peptide 1.8 ng/mL (0.5-3.3)
[2024-03-26 03:18] LABS: Glucose - Point of Care 133 mg/dl (70-99)
[2024-03-26 04:11] LABS: Glucose - Point of Care 106 mg/dl (70-99)
[2024-03-26 05:19] LABS: Glucose - Point of Care 100 mg/dl (70-99)
[2024-03-26] MEDS: SYNTHROID 50 MCG PO (05:56)
[2024-03-26 06:11] LABS: Glucose - Point of Care 123 mg/dl (70-99)
--- NOTE | 2024-03-26 06:16 | PTCARENOTE ---
Patient getting a cortisol resp ACTH test done this AM. Talked to IV nurse about test. Morning labs to be drawn at the time of test by CORPORATE DEVELOPMENT MANAGER.
[2024-03-26 07:35] LABS: Glucose - Point of Care 120 mg/dl (70-99)
[2024-03-26 08:20] LABS: Glucose - Point of Care 124 mg/dl (70-99)
[2024-03-26] MEDS: FLEXERIL 10 MG PO ×2 (09:25→16:37)
[2024-03-26 09:27] LABS: Glucose - Point of Care 97 mg/dl (70-99)
[2024-03-26 09:34] LABS: % Basophils 0.4 % (0-2); % Eosinophils 2.5 % (0-6); % Immature Granulocytes 0.4 % (0-0.5); % Lymphocytes 25.2 % (20.5-51.1); % Monocytes 8.7 % (1.7-9.3); % Neutrophils 62.8 % (42.2-75.2); Absolute Basophils 0.1 10^3/uL (0-0.2); Absolute Eosinophils 0.3 10^3/uL (0-0.7); Absolute Immature Granulocytes 0.1 10^3/uL (0-0.05); Absolute Monocytes 1.1 10^3/uL (0.1-0.6); Absolute Neutrophils 7.6 10^3/uL (1.4-6.5); Hematocrit 34.4 % (37.0-47.0); Hemoglobin 11.5 g/dL (12.0-16.0); Mean Corp Hgb Conc. 33.4 g/dL (33.0-37.0); Mean Corpuscular Hgb 33.3 pg (27.0-31.0); Mean Corpuscular Volume 99.7 fL (81.0-99.0); Mean Platelet Volume 11.5 fL (7.4-10.4); Nucleated Red Blood Cells % 0 %; Platelet Count 213 10^3/uL (130-400); Red Blood Cell Count 3.45 10^6/uL (4.20-5.40); Red Cell Dist. Width 11.7 % (11.5-14.5); White Blood Cell Count 12.1 10^3/uL (4.8-10.8)
[2024-03-26] MEDS: VALTREX 500 MG PO (09:36)
--- NOTE | 2024-03-26 10:07 | PTCARENOTE ---
Assumed care of patient this AM. No events reported overnight. Patient oriented to self only. Continued need for restraints. Patient angry, agitated combative and uncooperative. Patient NPO for abdominal US. IV fluids D10@100 mls/hr infusing
as ordered. Q1H accuchecks as per MD orders. SR on monitor. VS stable. Will continue to monitor frequently.
[2024-03-26 10:30] LABS: Glucose - Point of Care 73 mg/dl (70-99)
[2024-03-26] MEDS: HEPARIN 5000 UNITS SC ×2 (10:47→20:57)
[2024-03-26] MEDS: VITAMIN D3 (cholecalciferol) 50 MCG PO (10:47)
[2024-03-26] MEDS: OSCAL CAL 500 500 MG PO (10:47)
[2024-03-26] MEDS: DEPAKENE 100 MG PO ×3 (10:47→22:16)
[2024-03-26] MEDS: ZESTRIL 10 MG PO (10:47)
[2024-03-26] MEDS: NAMENDA 10 MG PO (10:47)
[2024-03-26 11:32] LABS: Glucose - Point of Care 127 mg/dl (70-99)
[2024-03-26 11:48] LABS: Blood Urea Nitrogen 17 mg/dl (7-17); Calcium 8.7 mg/dl (8.4-10.2); Carbon Dioxide 26 mmol/L (22-30); Chloride 105 mmol/L (98-107); Estimated Creatinine Clearance 61 ml/min; Glucose 90 mg/dl (70-99); Potassium 3.8 mmol/L (3.5-5.1); Sodium 144 mmol/L (135-145); eGFR > 60.00
[2024-03-26 12:56] LABS: Glucose - Point of Care 134 mg/dl (70-99)
[2024-03-26] MEDS: STERILE WATER FOR INJECTION 10 ML IV (13:18)
[2024-03-26] MEDS: ROCEPHIN 1000 MG IV (13:19)
[2024-03-26 14:37] LABS: Glucose - Point of Care 101 mg/dl (70-99)
[2024-03-26 15:56] LABS: Glucose - Point of Care 123 mg/dl (70-99)
--- NOTE | 2024-03-26 16:01 | W.PN.HOSP.TC ---
Today's Communication/Plan
-
Continue antibiotics
Wean off IV fluids with glucose
Monitor for recurrent hypoglycemia.
Assessment / Plan
Assessment / Plan
Impression:
Toxic metabolic encephalopathy secondary to UTI and hypoglycemia.
Hypoglycemia with transient hypothermia, sinus bradycardia, hypotension.
UTI with concern for sepsis.
Lactic acidosis.
Other conditions:
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
Anxiety/depression
Hypothyroidism on replacement
Anemia of chronic disease
Essential hypertension
Spinal stenosis.
Plan
Toxic metabolic encephalopathy suspect multifactorial due to UTI with concern for sepsis and hypoglycemia
Mental status improved and back to baseline patient is oriented to only name
Follow-up episode of agitation, currently improved and calm.
CT head without acute abnormalities.
Hypoglycemia been corrected.
UTI with concern for sepsis
Reported transient hypothermia, hypoglycemia
Noted elevated white count of 15.5.
Urine culture with Klebsiella
Blood cultures negative to date
Continue antibiotics/ceftriaxone pending final cultures
Monitor for urinary retention.
Improved hypothermia
TSH within normal limits.
Continue levothyroxine
No evidence of CHF clinically and radiologically.
Persistent hypoglycemia.
Normal cortisol and TSH level.
Appears to be hemodynamically stable
No prior history of diabetes
Not on any possible glucose lowering medications hold once that glucose hypoglycemic side effect
Check serum sulfonylurea panel.
C-peptide level with no elevation when drawn at the relative euglycemia
Random cortisol as well as ACTH them with no indication of hypoadrenal state
With stable mental status and oral intake, with no IV glucose
Continue Accu-Cheks.
Dementia, anxiety, depression
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 Not clear if he has a history of seizures or this used for behavioral disturbances.
Depakote level 38.6 on admission. Continue preadmission dose.
Continue memantine
Continue protective intervention, restraints. Wean off Haldol.
Continue mirtazapine, tamoxifen, Ativan.
Hypertension
Holding parameters for hypotension on lisinopril.
Spinal stenosis: Continue cyclobenzaprine and hold meloxicam
DVT prophylaxis heparin
Full code
Anticipated Discharge: 24 - 48 hours
Subjective/Interval History
-
Date of Service: March 26, 2024
Objective Data
-
Labs:
Laboratory Results
03/26/24
09:19
WBC 12.1 H
Hgb 11.5 L
Hct 34.4 L
Plt Count 213
Sodium 144
Potassium 3.8
Chloride 105
Carbon Dioxide 26
BUN 17
Creatinine 0.8
Glucose 90
Calcium 8.7
Vital Signs:
Vital Signs
Temp Pulse Resp BP Pulse Ox
97.7 F 62 10 123/70 97
03/26/24 11:30 03/26/24 08:00 03/26/24 08:00 03/26/24 08:00 03/26/24 08:00
I&O
03/25/24 03/26/24 03/27/24
06:59 06:59 06:59
Intake Total 1560 / 1560 300 / 300 480 / 480
Output Total 2750 / 2750 1100 / 1100
Balance -1190 / -1190 -800 / -800 480 / 480
Physical Exam
-
General: Well Developed and No Apparent Distress
HEENT: Normocephalic, Atraumatic and Moist Mucous Membranes
Respiratory: Clear to Auscultation
Cardiac: Regular Rhythm and S1/S2; Negative Murmur, Rub or Gallop
GI: Soft, Nontender, Nondistended and Normal Bowel Sounds; Negative Organomegaly
Rectal: Deferred by Provider
Musculoskeletal: No Clubbing, No Cyanosis and No Edema
Skin: Negative Rash
Neuro: Awake, Alert, Oriented (To name only) and Nonfocal/Grossly Intact
[2024-03-26] MEDS: D10W IV (16:15)
[2024-03-26] MEDS: TYLENOL 650 MG PO (16:36)
[2024-03-26 17:03] LABS: Glucose - Point of Care 410 mg/dl (70-99)
--- NOTE | 2024-03-26 17:10 | CM ---
Patient from [facility] with Hx dementia with Dx TME secondary to UTI and hypoglycemia, concern for sepsis. Room air. Receiving IVF, IV Abx. Abdominal U/S today. Per nursing; confused, restless, agitated and uncooperative, in restraints.
Message to Dr Fair: Noting closer to d/c, and have concern re; patient's ongoing agitation/restraints for return to SNF.
*Per prior CM notes, Thomas Butts, Court Appointed Guardian, wants phone call on day of d/c re; patient's return to [facility].
Plan contact Court Appointed Guardian when medically ready for d/c for permission to return patient to [facility].
[2024-03-26 17:55] LABS: Glucose - Point of Care 94 mg/dl (70-99)
[2024-03-26 18:57] LABS: Glucose - Point of Care 104 mg/dl (70-99)
[2024-03-26 19:39] LABS: Glucose - Point of Care 427 mg/dl (70-99)
[2024-03-26 21:11] LABS: Glucose - Point of Care 321 mg/dl (70-99)
[2024-03-26 22:15] LABS: Glucose - Point of Care 332 mg/dl (70-99)
[2024-03-26] MEDS: MELATONIN 5 MG PO (22:16)
--- NOTE | 2024-03-26 23:14 | PTCARENOTE ---
Received patient from previous RN. Patient is orientated to self and confused. Patient is in bilateral wrist restraints. VVS and assessment documented. Patient is on Q1 blood sugar checks. Last few blood sugars were in the 300s, ACID CUTTER aware.
Continuing Q1 checks. Patient is resting in bed with call matthews in reach.
[2024-03-26 23:41] LABS: Glucose - Point of Care 116 mg/dl (70-99)
[2024-03-27] VITALS (12 sets, daily range): BP systolic 93–114; BP diastolic 45–85; BMI 23.0
[2024-03-27 00:45] LABS: Glucose - Point of Care 390 mg/dl (70-99)
[2024-03-27 01:47] LABS: Glucose - Point of Care 99 mg/dl (70-99)
[2024-03-27 02:43] LABS: Glucose - Point of Care 106 mg/dl (70-99)
[2024-03-27 03:45] LABS: Glucose - Point of Care 95 mg/dl (70-99)
[2024-03-27 04:54] LABS: Glucose - Point of Care 101 mg/dl (70-99)
[2024-03-27] MEDS: SYNTHROID 50 MCG PO (05:43)
[2024-03-27 06:00] LABS: Glucose - Point of Care 126 mg/dl (70-99)
[2024-03-27 06:15] LABS: % Basophils 0.7 % (0-2); % Eosinophils 5.3 % (0-6); % Immature Granulocytes 0.6 % (0-0.5); % Lymphocytes 32.5 % (20.5-51.1); % Monocytes 8.1 % (1.7-9.3); % Neutrophils 52.8 % (42.2-75.2); Absolute Basophils 0.1 10^3/uL (0-0.2); Absolute Eosinophils 0.5 10^3/uL (0-0.7); Absolute Immature Granulocytes 0.1 10^3/uL (0-0.05); Absolute Lymphocytes 3.1 10^3/uL (1.2-3.4); Absolute Monocytes 0.8 10^3/uL (0.1-0.6); Absolute Neutrophils 5.1 10^3/uL (1.4-6.5); Hematocrit 34.7 % (37.0-47.0); Hemoglobin 11.6 g/dL (12.0-16.0); Mean Corp Hgb Conc. 33.4 g/dL (33.0-37.0); Mean Corpuscular Volume 101.8 fL (81.0-99.0); Mean Platelet Volume 11.2 fL (7.4-10.4); Nucleated Red Blood Cells % 0 %; Platelet Count 226 10^3/uL (130-400); Red Blood Cell Count 3.41 10^6/uL (4.20-5.40); Red Cell Dist. Width 11.6 % (11.5-14.5); White Blood Cell Count 9.6 10^3/uL (4.8-10.8)
[2024-03-27 07:08] LABS: Glucose - Point of Care 241 mg/dl (70-99)
[2024-03-27 07:10] LABS: Blood Urea Nitrogen 26 mg/dl (7-17); Calcium 8.6 mg/dl (8.4-10.2); Carbon Dioxide 27 mmol/L (22-30); Chloride 105 mmol/L (98-107); Estimated Creatinine Clearance 61 ml/min; Glucose 74 mg/dl (70-99); Potassium 4.6 mmol/L (3.5-5.1); Sodium 142 mmol/L (135-145); eGFR > 60.00
[2024-03-27 08:13] LABS: Glucose - Point of Care 117 mg/dl (70-99)
[2024-03-27 09:02] LABS: Glucose - Point of Care 101 mg/dl (70-99)
[2024-03-27] MEDS: HEPARIN 5000 UNITS SC ×2 (09:51→19:46)
[2024-03-27] MEDS: DEPAKENE 100 MG PO ×3 (09:51→20:48)
[2024-03-27] MEDS: NAMENDA 10 MG PO (09:53)
[2024-03-27] MEDS: OSCAL CAL 500 500 MG PO (09:53)
[2024-03-27] MEDS: VALTREX 500 MG PO (09:53)
[2024-03-27] MEDS: VITAMIN D3 (cholecalciferol) 50 MCG PO (09:53)
[2024-03-27] MEDS: ZESTRIL 10 MG PO (09:53)
[2024-03-27 10:15] LABS: Glucose - Point of Care 71 mg/dl (70-99)
[2024-03-27 11:08] LABS: Glucose - Point of Care 101 mg/dl (70-99)
[2024-03-27] MEDS: ROCEPHIN 1000 MG IV (11:33)
[2024-03-27] MEDS: STERILE WATER FOR INJECTION 10 ML IV (11:33)
--- NOTE | 2024-03-27 12:13 | PTCARENOTE ---
Patient is awake, alert and only oriented to self. Restraints discontinued this shift, patient is calm and easily redirected. Med sitter in affect for safety. Patient compliant with medication regimen. Denying pain when asked. Blood sugars have been
>70 this shift. Acu checks every 2 hours.
[2024-03-27 12:15] LABS: Glucose - Point of Care 82 mg/dl (70-99)
[2024-03-27] MEDS: RISPERDAL 0.25 MG PO (12:38)
--- NOTE | 2024-03-27 13:41 | W.PN.HOSP.TC ---
Today's Communication/Plan
-
Has been off IV glucose infusion.
Continue serial Accu-Cheks moving to every 2 hours monitoring for recurrent hypoglycemia
Continue IV antibiotics per
Low-dose of Risperdal per
Protective interventions
Assessment / Plan
Assessment / Plan
Impression:
Toxic metabolic encephalopathy secondary to UTI and hypoglycemia.
Hypoglycemia with transient hypothermia, sinus bradycardia, hypotension.
UTI with concern for sepsis.
Lactic acidosis.
Other conditions:
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
Anxiety/depression
Hypothyroidism on replacement
Anemia of chronic disease
Essential hypertension
Spinal stenosis.
Plan
Toxic metabolic encephalopathy suspect multifactorial due to UTI with concern for sepsis and hypoglycemia
Mental status improved and back to baseline patient is oriented to only name
Follow-up episode of agitation, currently improved and calm.
CT head without acute abnormalities.
Hypoglycemia been corrected.
UTI with concern for sepsis
Reported transient hypothermia, hypoglycemia
Noted elevated white count of 15.5.
Urine culture with Klebsiella
Blood cultures negative to date
Continue antibiotics/ceftriaxone
Monitor for urinary retention.
Improved hypothermia
TSH within normal limits.
Continue levothyroxine
No evidence of CHF clinically and radiologically.
Persistent hypoglycemia.
Normal cortisol and TSH level.
Appears to be hemodynamically stable
No prior history of diabetes
Not on any possible glucose lowering medications hold once that glucose hypoglycemic side effect
Check serum sulfonylurea panel.
C-peptide level with no elevation when drawn at the relative euglycemia
Random cortisol as well as ACTH them with no indication of hypoadrenal state
With stable mental status and oral intake, with no IV glucose
Continue Accu-Cheks.
Dementia, anxiety, depression
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 Not clear if he has a history of seizures or this used for behavioral disturbances.
Depakote level 38.6 on admission. Continue preadmission dose.
Continue memantine
Continue protective intervention, restraints. Wean off Haldol.
Continue mirtazapine, tamoxifen, Ativan.
Given mild agitation and attempt to get out of the bed, will add low-dose of Risperdal.
Hypertension
Holding parameters for hypotension on lisinopril.
Spinal stenosis: Continue cyclobenzaprine and hold meloxicam
DVT prophylaxis heparin
Full code
Anticipated Discharge: 24 - 48 hours
Subjective/Interval History
-
Date of Service: March 27, 2024
Objective Data
-
Labs:
Laboratory Results
03/27/24
06:00
WBC 9.6
Hgb 11.6 L
Hct 34.7 L
Plt Count 226
Sodium 142
Potassium 4.6
Chloride 105
Carbon Dioxide 27
BUN 26 H
Creatinine 0.8
Glucose 74
Calcium 8.6
Vital Signs:
Vital Signs
Temp Pulse Resp BP Pulse Ox
97.9 F 64 11 99/81 98
03/27/24 12:14 03/27/24 12:00 03/27/24 12:00 03/27/24 12:00 03/27/24 12:05
I&O
03/26/24 03/27/24 03/28/24
06:59 06:59 06:59
Intake Total 300 / 300 1305 / 1305 120 / 120
Output Total 1100 / 1100 500 / 500 150 / 150
Balance -800 / -800 805 / 805 -30 / -30
[2024-03-27 15:15] LABS: Glucose - Point of Care 107 mg/dl (70-99)
--- NOTE | 2024-03-27 16:00 | PTCARENOTE ---
Patient became restless and was climbing out of bed at noon. Notified Dr. Fair and Respiridal dose administered. Patient is now sleeping, physical restraint free.
[2024-03-27] MEDS: EFFEXOR 37.5 MG PO (16:41)
[2024-03-27 17:03] LABS: Glucose - Point of Care 102 mg/dl (70-99)
[2024-03-27 19:20] LABS: Glucose - Point of Care 127 mg/dl (70-99)
[2024-03-27] MEDS: MELATONIN 5 MG PO (20:47)
[2024-03-27] MEDS: RISPERDAL 0.5 MG PO (20:47)
[2024-03-27 21:17] LABS: Glucose - Point of Care 138 mg/dl (70-99)
[2024-03-28] VITALS (9 sets, daily range): BP systolic 88–118; BP diastolic 50–80
[2024-03-28 00:30] LABS: Glucose - Point of Care 119 mg/dl (70-99)
--- NOTE | 2024-03-28 00:58 | PTCARENOTE ---
Received patient from previous RN. Patient orientated to self only. patient restraint free and remaining calm and cooperative. Patient is on Q2 accu checks. NSR on monitor. RA sating at 96%. VSS. Patient resting in bed with call matthews in reach.
[2024-03-28 02:43] LABS: Glucose - Point of Care 116 mg/dl (70-99)
[2024-03-28] MEDS: SYNTHROID 50 MCG PO (05:11)
[2024-03-28 05:25] LABS: Glucose - Point of Care 123 mg/dl (70-99)
[2024-03-28 07:24] LABS: Glucose - Point of Care 87 mg/dl (70-99)
[2024-03-28] MEDS: HEPARIN 5000 UNITS SC (08:34)
[2024-03-28] MEDS: DEPAKENE 100 MG PO ×2 (08:35→16:43)
[2024-03-28] MEDS: FLEXERIL 10 MG PO (08:36)
[2024-03-28] MEDS: NAMENDA 10 MG PO (08:36)
[2024-03-28] MEDS: VALTREX 500 MG PO (08:36)
[2024-03-28] MEDS: OSCAL CAL 500 500 MG PO (08:36)
[2024-03-28] MEDS: ZESTRIL 10 MG PO (08:36)
[2024-03-28] MEDS: VITAMIN D3 (cholecalciferol) 50 MCG PO (08:37)
[2024-03-28 09:09] LABS: Glucose - Point of Care 216 mg/dl (70-99)
[2024-03-28 11:05] LABS: Glucose - Point of Care 97 mg/dl (70-99)
[2024-03-28] MEDS: RISPERDAL 0.25 MG PO (11:44)
[2024-03-28] MEDS: ROCEPHIN 1000 MG IV (11:45)
[2024-03-28] MEDS: FLUSH (NSS) 1 FLUSH IV (11:46)
[2024-03-28] MEDS: STERILE WATER FOR INJECTION 10 ML IV (11:46)
--- NOTE | 2024-03-28 12:51 | PTCARENOTE ---
Patient has been calm today. Bed alarm on. Med-sitter discontinued today. Scheduled dose of risperdal given as ordered. Patient has made a few attempts to climb out of bed but was easily redirected.
[2024-03-28 13:11] LABS: Glucose - Point of Care 75 mg/dl (70-99)
--- NOTE | 2024-03-28 13:22 | W.DS.TRANS ---
DC Summary - Living Advisor
-
Discharge Instructions:
Discharge Diagnosis/Procedures Impression:
Toxic metabolic encephalopathy secondary to UTI
and hypoglycemia.
Hypoglycemia with transient hypothermia, sinus
bradycardia, hypotension.
UTI with concern for sepsis.
Lactic acidosis.
Other conditions:
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
Anxiety/depression
Hypothyroidism on replacement
Anemia of chronic disease
Essential hypertension
Spinal stenosis.
Instructions:
Stand-Alone Forms:
Changes to Home Medications: Yes
Discharge Medications:
DC Medications w/original date entered in [email or web address]
acetaminophen 325 mg tablet (Tylenol) 650 mg PO Q4HPRN PRN mild pain 03/23/24
acetaminophen 325 mg tablet (Tylenol) 650 mg PO Q6HPRN PRN moderate pains 03/23/24
calcium carbonate 500 mg PO DAILY Supplement 03/23/24
cholecalciferol (vitamin D3) 50 mcg (2,000 unit) tablet (Vitamin D3) 50 mcg PO DAILY Supplement 03/23/24
cyclobenzaprine 10 mg tablet 10 mg PO TIDPRN PRN muscle spasms 03/23/24
levothyroxine 50 mcg tablet (Synthroid) 50 mcg PO DAILY Thyroid 03/23/24
lisinopril 10 mg tablet 10 mg PO DAILY Blood Pressure 03/23/24
melatonin 5 mg tablet 5 mg PO HS Sleep 03/23/24
memantine 5 mg tablet 10 mg PO DAILY Mental Health/Anxiety 03/23/24
mirtazapine 15 mg tablet (Remeron) 15 mg PO HS Mental Health/Anxiety 03/23/24
valacyclovir 500 mg tablet 500 mg PO DAILY ANTI VIRAL 03/23/24
valproic acid (as sodium salt) 250 mg/5 mL oral solution 100 mg PO TID Seizures 03/23/24
venlafaxine 37.5 mg tablet 37.5 mg PO Q48H Mental Health/Anxiety 03/23/24
cephalexin 500 mg capsule 500 mg PO QID #12 caps 03/28/24
lorazepam 0.5 mg tablet 0.5 mg PO DAILYPRN PRN anxiety #10 tabs 03/28/24
risperidone 0.25 mg tablet 0.25 mg PO BID #30 tabs 03/28/24
risperidone 0.5 mg tablet 0.5 mg PO HS #30 tabs 03/28/24
Home Medication Changes
Risperdal initiated
Pending Results: No
--- NOTE | 2024-03-28 13:29 | CM ---
Patient from [facility] with Hx dementia with Dx TME secondary to UTI and hypoglycemia, concern for sepsis. Room air. Receiving Risperdal. Medsitter discontinued today. Per nursing; confused, forgetful, restless at times, bedrest.
Met with patient who remains confused. She was informed she would be returning to [facility] today by ambulance- patient appears unable to comprehend.
Spoke with Thomas Butts, Court Appointed Guardian; he agrees with d/c today back to [facility] by ambulance. IMM completed and copy sent to his email at [email or web address]
Spoke with Natalie, [facility]; they are able to accept the patient back today. Natalie is aware Medsitter was discontined today and that behaviors for Medsitter today were restlessness and occaionally trying to get OOB but not agitation. The
ph for report [phone], fax [phone].
Plan [facility] today by ambulance.
[2024-03-28 16:11] LABS: Glucose - Point of Care 101 mg/dl (70-99)
[2024-03-28] MEDS: KEFLEX 500 MG PO (16:43)
== END 2024-03-28 17:56 | DRG 689 ==
LOC: IMU 12:53
PROVIDERS: Physician Assistant; ADMITTING PHYSICIAN Hospitalist; ATTENDING PHYSICIAN Internal Medicine; EMERGENCY PHYSICIAN Emergency Medicine; FAMILY PHYSICIAN Internal Medicine
DX: N39.0 Urinary tract infection, site not specified (principal); G92.8 Other toxic encephalopathy; F02.83 Dementia in other diseases classified elsewhere, unspecified severity, with mood disturbance; F02.84 Dementia in other diseases classified elsewhere, unspecified severity, with anxiety; E87.20 Acidosis, unspecified; D63.8 Anemia in other chronic diseases classified elsewhere; G30.9 Alzheimer's disease, unspecified; F32.A Depression, unspecified; E03.9 Hypothyroidism, unspecified; I10 Essential (primary) hypertension; R68.0 Hypothermia, not associated with low environmental temperature; B96.1 Klebsiella pneumoniae [K. pneumoniae] as the cause of diseases classified elsewhere; M48.00 Spinal stenosis, site unspecified; E16.2 Hypoglycemia, unspecified; I95.9 Hypotension, unspecified; R00.1 Bradycardia, unspecified; R45.87 Impulsiveness; Z79.890 Hormone replacement therapy; Z79.899 Other long term (current) drug therapy
CPT/HCPCS: 70450; 71045; 76700; 80048; 80053; 80164; 81003; 81015; 82533; 82962; 83036; 83605; 84443; 84681; 85025; 87040; 87070; 87077; 87086; 87186; 93005; 99285

== ENCOUNTER → 2024-04-16 14:30 | Outpatient (REF) | payer MEDICARE, OTHER, SELFPAY | LOC: RAD 14:30 | PROVIDERS: ATTENDING PHYSICIAN Internal Medicine | DX: E16.2 Hypoglycemia, unspecified (principal); G89.4 Chronic pain syndrome; T68.XXXD Hypothermia, subsequent encounter | CPT/HCPCS: 74178; Q9967 ==

== ENCOUNTER → 2024-09-04 11:38 | Outpatient (REF) | payer MEDICARE, OTHER, SELFPAY | LOC: MRI 11:38 | PROVIDERS: ATTENDING PHYSICIAN Nurse Practitioner Family | DX: D13.7 Benign neoplasm of endocrine pancreas (principal) | CPT/HCPCS: 74183; A9575 ==

== ENCOUNTER 2024-09-16 12:48 | Inpatient (IN) | payer MEDICARE, SELFPAY ==
[2024-09-16] VITALS (8 sets, daily range): BP systolic 125–141; BP diastolic 63–73; BMI 29.9
--- NOTE | 2024-09-16 09:39 | ED.GENMED ---
History of Present Illness
General
Chief Complaint: Cold/Flu/URI Symptoms
Time Seen by Provider: 09/16/24 09:37
History of Present Illness
History of Present Illness:
TIME OF INITIAL ENCOUNTER: 9:40 AM
HPI: Patient comes in from [facility] by ambulance.She was diagnosed with the flu 5 days ago. The patient provides no meaningful history. Reportedly, the patient has been more lethargic. She does have a history of dementia and is oriented to
self only.
EXAM:
GENERAL: Primarily keeps her eyes closed and does not participate with examination, she does not follow commands
HEENT: Moist oral mucosa
CARDIOVASCULAR: Regular rate and rhythm
PULMONARY: No respiratory distress, breathing is nonlabored, equally decreased breath sounds
ABDOMEN: Soft and nontender with no peritoneal signs
NEUROLOGIC: The patient has evidence of dementia, not oriented to month or place, strength is equal in all extremities
EXTREMITIES: Moves all extremities equally, no tenderness, no edema
PYSCHIATRIC: Very limited historian, poor insight and judgment
NUMBER AND COMPLEXITY OF PROBLEMS ADDRESSED AT THE ENCOUNTER
� Chronic conditions affecting care: Dementia, chronic pain, high blood pressure, hyperlipidemia, anxiety
� Acute Exacerbation and/or Progression of Chronic Illness: This is an acute problem
� Differential Diagnosis includes: Pneumonia, dehydration, progression of dementia, delirium, EMY
AMOUNT AND/OR COMPLEXITY OF DATA TO BE REVIEWED AND ANALYZED
� I performed an independent evaluation of and my interpretation is:
EKG: Sinus 66, normal axis, no acute ST abnormality
CT:
X-rays: Chest x-ray shows density at the left base
Laboratory Studies: White count normal, hemoglobin normal, chemistries unremarkable however the BUN is 34, minimal transaminase elevation
Other:
� Review of other/old records: I reviewed records, the patient was admitted with an acute UTI/toxic metabolic encephalopathy in March 2024. She also had persistent hypoglycemia at that time and did not have adrenal
insufficiency. Old records indicate the patient is on Namenda.
� Clinical information was obtained by an independent historian: EMS/notes from [facility]
� Prescriptions/Medications Considered but not given:
� Further testing considered but not performed:
RISK OF COMPLICATIONS AND/OR MORBIDITY OR MORTALITY OF PATIENT MANAGEMENT
� Social determinants of health affecting care: Resides at [facility]
� Discussion with other providers: Hospitalist, Dr. Boothe for admission
� Escalation of care including admission/observation vs risk of discharge considered: The patient was found to be flu a positive several days ago. She cannot provide any meaningful history and does have history of dementia.
Although her vitals, lactic and white count are normal, she does have moderate left lower lobe consolidation. Will start antibiotics.
ANY OTHER UPDATES:
11:15am, Given overall ill appearance, now w/ pneumonia, will start IV Abx, IVF were given due to concern for dehydration. I attempted to call the listed emergency provider, Mukul Butts, . This appears to be an defense attorney and I am not
aware of any local family. I am uncertain about CODE STATUS.
Phy Exam
Physical Exam
Physical Exam:
See HPI
Course
Orders/Labs/Results
Orders:
Orders
09/16/24 09:35
Electrocardiogram (*1) Urgent
Reason for Study: Fatigue / Weakness
EKG- Treatment ONCE
09/16/24 09:40
COVID-19 Antigen Urgent
Source: Nasal Swab
Complete Blood Count/With Diff Urgent
Comprehensive Metabolic Panel Urgent
Lactic Acid Urgent
Influenza A+B Rapid Molecular Urgent
[place] Source: Nasal Swab
Specimen Description:
09/16/24 09:42
CR Chest - 2 Views Urgent
Comment:
Reason For Exam: hypoxia recent flu
09/16/24 10:23
Blood Culture Q30M
[place] Source: Blood/Venous
Specimen Description:
Blood Culture Q30M
[place] Source: Blood/Venous
Specimen Description:
0.9% Sodium Chloride 1000 ml [Nss] 1,000 ml IV BOLUS
09/16/24 11:13
*Vancomycin 2,000 mg Loading Dose (consider for >/= 70 kg) Vancomycin [Vancocin] 2,000 mg 0.9% Sodium Chloride 500 ml [Nss] 500 ml IV NOW
Cefepime HCl [Maxipime] 1,000 mg IV NOW STA
Abnormal Lab Results
09/16/24
09:40
MCH 32.3 H pg
(27.0-31.0)
Chloride 109 H mmol/L
(98-107)
BUN 34 H mg/dl
(7-17)
Glucose 125 H mg/dl
(70-99)
AST 83 H U/L
(14-36)
ALT 76 H U/L
(0-35)
Albumin 3.4 L g/dl
(3.5-5.0)
09/16/24 09:40
09/16/24 09:40
Vital Signs
Initial and Last Documented VS:
Initial Vital Signs
Pulse Resp BP Pulse Ox
66 15 133/63 90
09/16/24 09:33 09/16/24 09:33 09/16/24 09:33 09/16/24 09:33
Last Documented Vital Signs
Temp Pulse Resp BP Pulse Ox
37.4 C 62 13 133/63 97
09/16/24 09:37 09/16/24 10:30 09/16/24 10:30 09/16/24 09:37 09/16/24 10:30
*Critical Care Note
Total Time (30-74mins, 75-104mins- exclusive of procedures): Not Applicable
ED Attending Note
-
Portions of this chart may have been created with voice recognition software.� Occasional wrong word or��sound alike� substitutions may have occurred due to the inherent limitations of voice recognition software.
Discharge Plan
Departure
Prescriptions:
No Action
cyclobenzaprine 10 mg Tablet
10 mg PO TIDPRN PRN (Reason: muscle spasms)
acetaminophen [Tylenol] 325 mg Tablet
650 mg PO Q4HPRN PRN (Reason: mild pain)
acetaminophen [Tylenol] 325 mg Tablet
650 mg PO Q6HPRN PRN (Reason: moderate pains)
valacyclovir 500 mg Tablet
500 mg PO DAILY
calcium carbonate 500 mg calcium (1,250 mg) Tablet
500 mg PO DAILY
valproic acid (as sodium salt) 250 mg/5 mL Solution
100 mg PO TID
levothyroxine [Synthroid] 50 mcg Tablet
50 mcg PO DAILY
venlafaxine 37.5 mg Tablet
37.5 mg PO Q48H
Rx Instructions:
take until 03/28/24
lisinopril 10 mg Tablet
10 mg PO DAILY
mirtazapine [Remeron] 15 mg Tablet
15 mg PO HS
memantine 5 mg Tablet
10 mg PO DAILY
melatonin 5 mg Tablet
5 mg PO HS
cholecalciferol (vitamin D3) [Vitamin D3] 50 mcg (2,000 unit) Tablet
50 mcg PO DAILY
risperidone 0.25 mg Tablet
0.25 mg PO BID Qty: 30 0RF
cephalexin 500 mg Capsule
500 mg PO QID Qty: 12 0RF
risperidone 0.5 mg Tablet
0.5 mg PO HS Qty: 30 0RF
lorazepam 0.5 mg Tablet
0.5 mg PO DAILYPRN PRN (Reason: anxiety) Qty: 10 0RF
Referrals:
Robbie Martinez I., DO [Family Provider] -
Interventions
Interventions:
*Risk Screen - Suicide Last Done: 09/16/24 09:45
*General Assessment Last Done: 09/16/24 09:45
*Neglect/Abuse Screening Last Done: 09/16/24 09:45
*ED- Fall Risk Assessment Last Done: 09/16/24 09:45
*ED COVID-19 Vaccine History Last Done: 09/16/24 09:45
ED- Pulmonary Assessment Last Done: 09/16/24 09:45
Discharge Date and Time
Print Language: LITHUANIAN
[2024-09-16 10:01] LABS: Hematocrit 41.9 % (37.0-47.0); Hemoglobin 14.1 g/dL (12.0-16.0); Mean Corp Hgb Conc. 33.7 g/dL (33.0-37.0); Mean Corpuscular Hgb 32.3 pg (27.0-31.0); Mean Corpuscular Volume 96.1 fL (81.0-99.0); Mean Platelet Volume 10.4 fL (7.4-10.4); Platelet Count 220 10^3/uL (130-400); Red Blood Cell Count 4.36 10^6/uL (4.20-5.40); Red Cell Dist. Width 12.8 % (11.5-14.5)
[2024-09-16 10:09] LABS: Lactic Acid 0.9 mmol/L (0.7-2.0)
[2024-09-16 10:10] LABS: ALT (SGPT) 76 U/L (0-35); AST (SGOT) 83 U/L (14-36); Albumin 3.4 g/dl (3.5-5.0); Alkaline Phosphatase 57 U/L (38-126); Blood Urea Nitrogen 34 mg/dl (7-17); Calcium 9.2 mg/dl (8.4-10.2); Carbon Dioxide 25 mmol/L (22-30); Chloride 109 mmol/L (98-107); Glucose 125 mg/dl (70-99); Potassium 4.1 mmol/L (3.5-5.1); Sodium 142 mmol/L (135-145); Total Bilirubin 0.7 mg/dl (0.2-1.3); Total Protein 6.4 g/dl (6.3-8.2); eGFR > 60.00
[2024-09-16] MEDS: NSS 1000 IV ×2 (10:25→16:23)
[2024-09-16 10:34] LABS: COVID-19 Antigen Negative (Negative)
[2024-09-16] MEDS: MAXIPIME 1000 MG IV ×2 (11:20→20:16)
[2024-09-16] MEDS: VANCOCIN 540 MG IV (11:33)
[2024-09-16 11:48] LABS: Absolute Neutrophils -Man Diff 3.9 10^3/uL (1.4-6.5); Band Neutrophils 0 % (0-3); Eosinophils 4 % (0-6); Lymphocytes 21 % (20-51); Monocytes 15 % (2-9); Segmented Neutrophils 57 % (42-75)
[2024-09-16 11:49] LABS: Atypical Lymphocytes 1 %; Normal RBC Morphology Yes; Plasmacytoid Lymphocytes 2 %; Platelets Checked Yes; Total Cells Counted 100
--- NOTE | 2024-09-16 11:54 | HPS.HSE ---
Family Physician
-
Family Physician: Robbie Martinez
Chief Complaint
-
Increased lethargy
History of Present Illness
HPI: 69 yo F with PMH dementia suspect Alzheimer type (orientated to self only at baseline), Anxiety/depression, Hypothyroidism on replacement, Anemia of chronic disease, Essential hypertension, Spinal stenosis, who lives at 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
She is arousable to sternal rub, not able to provide meaningful history.
Medical History
Past Medical History
Past Medical History: Reports Other (dementia, anxiety/depression, spinal stenosis, hypertension, hypothyroidism)
Past Surgical History: Reports None
Social History
Tobacco: Non-smoker
Alcohol: None
Drug: None
Living: Senior Living
Family History
Family History: Not pertinent
Allergies / Home Medications
Allergies reflects when Allergies were last updated in [facility].
Home Medications with original date entered in [facility]
Allergy/Medication List:
Allergies
Allergy/AdvReac Type Severity Reaction Status Date / Time
No Known Allergies Allergy Verified 03/23/24 09:41
Home Medications
acetaminophen 325 mg tablet (Tylenol) 650 mg PO Q4HPRN PRN mild pain 03/23/24
acetaminophen 325 mg tablet (Tylenol) 650 mg PO Q6HPRN PRN moderate pains 03/23/24
calcium carbonate 500 mg PO DAILY Supplement 03/23/24
cholecalciferol (vitamin D3) 50 mcg (2,000 unit) tablet (Vitamin D3) 50 mcg PO DAILY Supplement 03/23/24
levothyroxine 50 mcg tablet (Synthroid) 50 mcg PO DAILY Thyroid 03/23/24
lisinopril 10 mg tablet 10 mg PO DAILY Blood Pressure 03/23/24
melatonin 5 mg tablet 5 mg PO HS Sleep 03/23/24
memantine 5 mg tablet 10 mg PO DAILY Mental Health/Anxiety 03/23/24
mirtazapine 15 mg tablet (Remeron) 15 mg PO HS Mental Health/Anxiety 03/23/24
valacyclovir 500 mg tablet 500 mg PO DAILY ANTI VIRAL 03/23/24
valproic acid (as sodium salt) 250 mg/5 mL oral solution 100 mg PO TID Seizures 03/23/24
risperidone 0.25 mg tablet 0.25 mg PO BID #30 tabs 03/28/24
risperidone 0.5 mg tablet 0.5 mg PO HS #30 tabs 03/28/24
Saccharomyces boulardii 250 mg capsule (Florastor) 250 mg PO BID 09/16/24
amoxicillin 250 mg-potassium clavulanate 125 mg tablet 1 tab PO BID 09/16/24
bisacodyl 10 mg rectal suppository (Dulcolax (bisacodyl)) 10 mg OK DAILYPRN PRN if no bm aftr mom 09/16/24
ipratropium 0.5 mg-albuterol 3 mg (2.5 mg base)/3 mL nebulization soln 3 ml inhalation R QID 09/16/24
magnesium hydroxide 400 mg/5 mL oral suspension (Milk of Magnesia) 2,400 mg PO HSPRN PRN if no bm by 3rd day 09/16/24
meloxicam 15 mg tablet 15 mg PO DAILY 09/16/24
Review of Systems
-
Neurological: Reports See HPI
Physical Exam
Vital Signs
Vital Signs
Temp Pulse Resp BP Pulse Ox
37.4 C 52 12 125/70 99
09/16/24 09:37 09/16/24 11:25 09/16/24 11:25 09/16/24 11:25 09/16/24 11:25
Physical Exam
General: Well Developed, Well Nourished, No Apparent Distress, Comfortable and Appears Chronically Ill
HEENT: NormoCephalic, Moist mucous membranes, Atraumatic and Oxygen (1L NC)
Respiratory: Clear and Non Labored Respirations; No Accessory Resp Muscle Use
Cardiac: S1/S2 and Regular Rhythm; No Murmur or Rub
GI: Soft, Non Tender, Non Distended and Normal Bowel Sounds; No Organomegaly
Rectal: Deferred by Provider
Musculoskeletal: No Clubbing, No Cyanosis and No Edema
Skin: No Rash
Psych: Apparent Dementia
Laboratory Results
-
09/16/24 09:40
09/16/24 09:40
Laboratory Results
Lactic Acid 0.9 mmol/L (0.7-2.0) 09/16/24 09:40
Total Bilirubin 0.7 mg/dl (0.2-1.3) 09/16/24 09:40
AST 83 U/L (14-36) H 09/16/24 09:40
ALT 76 U/L (0-35) H 09/16/24 09:40
Alkaline Phosphatase 57 U/L (38-126) 09/16/24 09:40
Data Reviewed
-
Diagnostic Radiology: Report Reviewed by me
Lab Data: Labs Reviewed by me
Impression/Plan
-
HPI: 69 yo F with PMH dementia suspect Alzheimer type (orientated to self only at baseline), Anxiety/depression, Hypothyroidism on replacement, Anemia of chronic disease, Essential hypertension, Spinal stenosis, who lives at 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
She is arousable to sternal rub, not able to provide meaningful history.
A/P:
# acute metabolic encephalopathy/hypoactive delirium, could be related possible community-acquired pneumonia, vs recent Flu infection
Severe underlying dementia also contributing to worsening mental status
CXR noted MODERATE LEFT LOWER LOBE PNEUMONIA.
Check procal, MRSA screen
Follow blood Cx
Also check UA/urine culture
Patient was given cefepime/vanc in ED, cont for now
Monitor mental status, hold sedating meds
N.p.o. for now, Gentle IVF while n.p.o, speech eval prior to restarting diet
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
out of window for Tamiflu
monitor symptoms
# Elevated LFT suspect reactive
cont to trend
Other medical conditions:
# Dementia suspect Alzheimer type.
orientated to self only at baseline
Currently lethargic, arousable to sternal rub
# Anxiety/depression
Hold mirtazapine
# Hypothyroidism on replacement
check TSH reflex FT4
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
# Essential hypertension
Cont lisinopril
# Spinal stenosis.
DVT ppx: Lovenox SQ
DNR DNI, discussed with pt's POA/guardian Thomas Deluca
--- NOTE | 2024-09-16 12:41 | CM ---
CM spoke with nursing at [facility]
Pt is a LTC resident with [place] bed hold
She has dementia
Pt ambulates with supervision without any ADs, coaxing and cueing due to dementia
At times, is in W/C and at times self propels
Requires 1 person assist with all personal care tasks
Started on new O2 at [facility] last week, 3L
PCP- Robbie Martinez
Rx- Syngergy
Call to pt's guardian/ Thomas Butts [phone]
Introduced self and explained role
Requesting call prior to dc and pt not to be sent back to SNF without his consent
TT/Dr Hardy requesting she provide update to guardian per his request
Discharge Disposition- anticipate return to [facility] LTC
[2024-09-16 14:37] LABS: Procalcitonin < 0.05 ng/ml (0.0-0.25)
[2024-09-16] MEDS: DUONEB 3 ML INH ×2 (16:23→19:28)
[2024-09-16] MEDS: DEPAKENE 100 MG PO ×2 (16:23→21:22)
[2024-09-16] MEDS: LOVENOX 40 MG SC (16:23)
--- NOTE | 2024-09-16 16:38 | PHA.VAN.IN ---
Assessment
- Assessment
Renal Function: Appears similar to baseline (03/27/24 BASELINE SCR: 0.8)
Concomitant Antimicrobials: cefepime
- Previous Dosing Experience
Previous Regimen: NONE
AUC Dosing Plan
- Dosing Variables
Dosing Weight (kg): 70
Dosing CrCl (ml/min): 69
Vd coefficient (L/kg): 0.7
- Empiric Dosing
Initial / Loading Dose: 2GM
Maintenance Regimen: 750MG IV Q12H
Estimated AUC (mcg*h/mL): 512
Estimated Peak (mcg*h/mL): 29.3
Estimated Trough (mcg/ml): 14.9
Estimated Half Life (H): 11.2
Pharmacokinetics Vancomycin I
- -
Patient Age: 69
Patient Sex: Female
Vancomycin Day #: 1
Indication: Other (PNA/CLEVE)
Requesting Provider: KWAME
Height / Weight:
Height 5 ft 6 in
Actual Weight 70 kg
- Vital Signs / Lab Results
Temp Pulse Resp BP Pulse Ox
98.4 F 67 16 141/73 94
09/16/24 16:00 09/16/24 16:24 09/16/24 16:24 09/16/24 16:00 09/16/24 16:24
Lab Results - Hematology
09/16/24
09:40
WBC 7.0
Band Neutrophils 0
Lab Results - Chemistry
09/16/24
09:40
BUN 34 H
Creatinine 0.7
Albumin 3.4 L
09/16/24
09:40
Lactic Acid 0.9
Microbiology Results
09/16/24 09:40 Influenza Types A & B (SARI) - Final
Nasal Swab Influenza A Positive, NAAT
[2024-09-16] MEDS: STERILE WATER FOR INJECTION 10 ML IV (20:15)
[2024-09-17] VITALS (7 sets, daily range): BP systolic 120–148; BP diastolic 51–83; PULSE 61
[2024-09-17] MEDS: MAXIPIME 1000 MG IV ×2 (04:35→11:55)
[2024-09-17] MEDS: STERILE WATER FOR INJECTION 10 ML IV ×2 (04:35→11:55)
[2024-09-17] MEDS: SYNTHROID 50 MCG PO (05:51)
[2024-09-17] MEDS: VANCOCIN 150 IV (05:51)
[2024-09-17] MEDS: DUONEB 3 ML INH ×2 (07:38→11:09)
[2024-09-17 07:54] LABS: Hematocrit 37.6 % (37.0-47.0); Hemoglobin 12.7 g/dL (12.0-16.0); Mean Corp Hgb Conc. 33.8 g/dL (33.0-37.0); Mean Corpuscular Hgb 32.9 pg (27.0-31.0); Mean Corpuscular Volume 97.4 fL (81.0-99.0); Mean Platelet Volume 10.2 fL (7.4-10.4); Platelet Count 216 10^3/uL (130-400); Red Blood Cell Count 3.86 10^6/uL (4.20-5.40); Red Cell Dist. Width 12.7 % (11.5-14.5); White Blood Cell Count 8.3 10^3/uL (4.8-10.8)
[2024-09-17 07:59] LABS: ALT (SGPT) 50 U/L (0-35); AST (SGOT) 52 U/L (14-36); Alkaline Phosphatase 50 U/L (38-126); Blood Urea Nitrogen 24 mg/dl (7-17); Calcium 8.4 mg/dl (8.4-10.2); Carbon Dioxide 26 mmol/L (22-30); Chloride 107 mmol/L (98-107); Estimated Creatinine Clearance 56 ml/min; Glucose 101 mg/dl (70-99); Potassium 4.2 mmol/L (3.5-5.1); Sodium 139 mmol/L (135-145); Total Bilirubin 0.6 mg/dl (0.2-1.3); Total Protein 5.7 g/dl (6.3-8.2); eGFR > 60.00
--- NOTE | 2024-09-17 08:21 | PHA.VAN.FU ---
Vancomycin Assessment / Plan
- Assessment
Renal Function: Stable
WBC's are: WNL
In the past 24 hrs, patient has been: Afebrile
Concomitant Antimicrobials: cefepime
- Dosing Plan
Continue: Vanc 750mg Q12H
Patient with borderline renal function - will continue dosing for now
- Monitoring Plan
No level(s) ordered at this time: consider levels in next few days
- Follow Up
Pharmacy will continue to follow.
Vancomycin Follow UP
- -
Patient Age: 69
Patient Sex: Female
Vancomycin Day #: 2
Indication: Other
Requesting Provider: Dr. Hardy
Pertinent Antimicrobial Allergies:
NKDA
Height / Weight:
Height 5 ft
Actual Weight 69.672 kg
Pertinent Past Medical History: BMI ~30
- Vital Signs / Lab Results
Temp Pulse Resp BP Pulse Ox
97.7 F 81 15 148/83 96
09/17/24 03:18 09/17/24 07:40 09/17/24 07:40 09/17/24 03:18 09/17/24 07:40
Lab Results - Hematology
09/16/24 09/17/24
09:40 07:15
WBC 7.0 8.3
Band Neutrophils 0
Lab Results - Chemistry
09/16/24 09/17/24
09:40 07:15
BUN 34 H 24 H
Creatinine 0.7 0.8
Estimated Creat Clear 56
Albumin 3.4 L 3.0 L
09/16/24
09:40
Lactic Acid 0.9
Microbiology Results
09/16/24 09:40 Influenza Types A & B (SARI) - Final
Nasal Swab Influenza A Positive, NAAT
[2024-09-17] MEDS: DEPAKENE 100 MG PO ×3 (08:39→21:16)
[2024-09-17] MEDS: VALTREX 500 MG PO (08:40)
[2024-09-17] MEDS: NAMENDA 10 MG PO (08:40)
[2024-09-17] MEDS: SYNTHROID 25 MCG PO (08:40)
[2024-09-17] MEDS: ZESTRIL 10 MG PO (08:40)
--- NOTE | 2024-09-17 08:40 | PTOTSP ---
Speech Language Pathology
Pt seen for clinical bedside swallow evaluation. P.O. trials of puree, regular solids, and thin liquids provided. Adequate mastication, bolus formation, and A-P transit noted with no oral residue. No overt signs of aspiration. Also seen for med
pass with RN. Attempted pills whole in puree and whole with liquid. Pocketing of med inconsistently noted, > with larger pills. This was related to cognitive status, not a true dysphagia.
Recommend:
(1) Regular solids/thin liquids
(2) Aspiration precautions: full supervision with assist as needed, slow rate, sit upright, ensure oral cavity clear post P.O. intake
(3) Meds as tolerated from a cognitive standpoint
(4) MOBILE SALES CONSULTANT to continue to follow, likely briefly
[2024-09-17] MEDS: NSS 1000 IV (08:42)
--- NOTE | 2024-09-17 12:23 | W.PN.HOSP.TC ---
Today's Communication/Plan
-
see A/P
Assessment / Plan
Assessment / Plan
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
diagnosed with the flu 5 days GENERAL MAGISTRATE; p/w increased lethargy.
She is arousable to sternal rub, not able to provide meaningful history.
A/P:
# acute metabolic encephalopathy/hypoactive delirium, could be related to recent Flu infection, in setting of severe dementia
CXR noted MODERATE LEFT LOWER LOBE PNEUMONIA. Procal neg which essentially r/o bacterial pneumonia
Patient was given cefepime/vanc in ED, DC further Abx
blood Cx x2 so far negative
UA noted
mental status improving, pt is awake and minimally conversant, suspect back to baseline
hold sedating meds including home mirtazapine
cleared for solid food per SPL
# recent Flu infection 5 days GENERAL MAGISTRATE
out of window for Tamiflu
monitor symptoms
# Elevated LFT suspect reactive
LFT improving, cont to trend
Other medical conditions:
# Dementia suspect Alzheimer type.
orientated to self only at baseline
No behavioral disturbance
# Anxiety/depression
Hold mirtazapine
# Hypothyroidism
TSH elevated at 40, FT4 at 4.65
increased GENERAL MAGISTRATE Synthroid from 50 to 75 mcg
# Essential hypertension
Cont lisinopril
# Spinal stenosis.
DVT ppx: Lovenox SQ
DNR DNI, discussed with pt's POA/guardian Thomas Deluca
Anticipated Discharge: 24 - 48 hours
Subjective/Interval History
-
Date of Service: September 17, 2024
Objective Data
-
Labs:
Laboratory Results
09/17/24
07:15
WBC 8.3
Hgb 12.7
Hct 37.6
Plt Count 216
Sodium 139
Potassium 4.2
Chloride 107
Carbon Dioxide 26
BUN 24 H
Creatinine 0.8
Glucose 101 H
Calcium 8.4
Total Bilirubin 0.6
AST 52 H
ALT 50 H
Alkaline Phosphatase 50
Vital Signs:
Vital Signs
Temp Pulse Resp BP Pulse Ox
37.1 C 60 17 120/67 98
09/17/24 11:33 09/17/24 11:33 09/17/24 11:33 09/17/24 11:33 09/17/24 11:33
I&O
09/16/24 09/17/24 09/18/24
06:59 06:59 06:59
Intake Total 720 / 720
Output Total 200 / 200
Balance 520 / 520
Review of Systems
-
Unable to obtain full review of systems at this time due to: Dementia
Physical Exam
-
General: Well Developed, No Apparent Distress, Comfortable, Conversant and Appears Chronically Ill
HEENT: Normocephalic, Atraumatic and Moist Mucous Membranes
Respiratory: Clear to Auscultation
Cardiac: Regular Rhythm and S1/S2; Negative Murmur, Rub or Gallop
GI: Soft, Nontender, Nondistended and Normal Bowel Sounds; Negative Organomegaly
Rectal: Deferred by Provider
Musculoskeletal: No Clubbing, No Cyanosis and No Edema
Skin: Negative Rash
Neuro: Awake and Alert
Psych: Calm and Apparent Dementia
Data Reviewed
-
Labs: Labs Reviewed by me
--- NOTE | 2024-09-17 14:06 | CM ---
CM following re:L discharge planning.
Reviewed pt's chart.
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, on Medicaid bed hold, requires assistance of 1 with ambulation and care for impaired memory. Pt has a legal guardian and pt's discharge plan must be coordinated with legal guardian.
D/C plan: return back to [facility] for a terminal clerk care when medically stable.
CM will follow with discharge plan updates as hospitalization progresses
[2024-09-17] MEDS: DUONEB INH (15:23)
[2024-09-17] MEDS: LOVENOX 40 MG SC (17:12)
[2024-09-17] MEDS: STERILE WATER FOR INJECTION IV (19:38)
[2024-09-18] MEDS: NSS 1000 IV (01:23)
[2024-09-18] MEDS: STERILE WATER FOR INJECTION IV ×2 (03:02→10:01)
[2024-09-18 03:05] VITALS: BP 141/73
[2024-09-18] MEDS: SYNTHROID 75 MCG PO (03:21)
[2024-09-18 03:24] VITALS: BMI 29.9
[2024-09-18 07:00] VITALS: BP 128/58
[2024-09-18] MEDS: DEPAKENE 100 MG PO (08:09)
[2024-09-18] MEDS: ZESTRIL 10 MG PO (08:09)
[2024-09-18] MEDS: NAMENDA 10 MG PO (08:09)
[2024-09-18] MEDS: VALTREX 500 MG PO (08:10)
[2024-09-18 08:45] LABS: Hemoglobin 13.1 g/dL (12.0-16.0); Mean Corp Hgb Conc. 33.6 g/dL (33.0-37.0); Mean Corpuscular Hgb 32.1 pg (27.0-31.0); Mean Corpuscular Volume 95.6 fL (81.0-99.0); Platelet Count 277 10^3/uL (130-400); Red Blood Cell Count 4.08 10^6/uL (4.20-5.40); Red Cell Dist. Width 12.5 % (11.5-14.5); White Blood Cell Count 10.6 10^3/uL (4.8-10.8)
[2024-09-18 09:19] LABS: ALT (SGPT) 54 U/L (0-35); AST (SGOT) 54 U/L (14-36); Albumin 3.3 g/dl (3.5-5.0); Alkaline Phosphatase 58 U/L (38-126); Blood Urea Nitrogen 19 mg/dl (7-17); Carbon Dioxide 28 mmol/L (22-30); Chloride 106 mmol/L (98-107); Estimated Creatinine Clearance 56 ml/min; Glucose 80 mg/dl (70-99); Magnesium 2.2 mg/dl (1.6-2.3); Potassium 4.3 mmol/L (3.5-5.1); Sodium 141 mmol/L (135-145); Total Bilirubin 0.6 mg/dl (0.2-1.3); Total Protein 6.4 g/dl (6.3-8.2); eGFR > 60.00
--- NOTE | 2024-09-18 10:28 | W.PN.HOSP.TC ---
Addendum entered and electronically signed by Tara Hardy MD 09/18/24 13:54:
# acute metabolic encephalopathy was not contributed to/associated with hypothyroidism with normal FT4 level
Addendum entered and electronically signed by Tara Hardy MD 09/18/24 13:53:
total DC time 36 min
Original Note:
Today's Communication/Plan
-
medically stable for discharge
Assessment / Plan
Assessment / Plan
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
She is arousable to sternal rub, not able to provide meaningful history.
A/P:
# acute metabolic encephalopathy/hypoactive delirium, due to recent Flu infection, in setting of severe dementia
CXR noted MODERATE LEFT LOWER LOBE PNEUMONIA. Procal neg which essentially r/o bacterial pneumonia
Patient was given cefepime/vanc in ED, DC further Abx
blood Cx x2 negative
UA noted
mental status improved, pt is awake and conversant, suspect back to baseline
hold sedating meds including home mirtazapine
cleared for solid food per SPL
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
out of window for Tamiflu
monitor symptoms
# Elevated LFT suspect reactive
LFT improving, cont to trend
follow LFT with PCP outpt
Other medical conditions:
# Dementia suspect Alzheimer type.
orientated to self only at baseline
No behavioral disturbance
# Anxiety/depression
Hold mirtazapine
# Hypothyroidism
TSH elevated at 40, FT4 at 4.65
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
# Essential hypertension
Cont lisinopril
# Spinal stenosis.
DVT ppx: Lovenox SQ
DNR DNI, discussed with pt's POA/guardian Thomas Deluca
DW CM
left voice mail for guardian Thomas Deluca
Anticipated Discharge: Today
Subjective/Interval History
-
Date of Service: September 18, 2024
Objective Data
-
Labs:
Laboratory Results
09/18/24
07:32
WBC 10.6
Hgb 13.1
Hct 39.0
Plt Count 277 D
Sodium 141
Potassium 4.3
Chloride 106
Carbon Dioxide 28
BUN 19 H
Creatinine 0.8
Glucose 80
Calcium 9.0
Total Bilirubin 0.6
AST 54 H
ALT 54 H
Alkaline Phosphatase 58
Vital Signs:
Vital Signs
Temp Pulse Resp BP Pulse Ox
36.4 C 53 16 128/58 92
09/18/24 07:00 09/18/24 08:09 09/18/24 07:00 09/18/24 08:09 09/18/24 10:23
I&O
09/17/24 09/18/24 09/19/24
06:59 06:59 06:59
Intake Total 720 / 720 2000 / 2000
Output Total 200 / 200 900 / 900
Balance 520 / 520 1100 / 1100
Review of Systems
-
Unable to obtain full review of systems at this time due to: Dementia
Physical Exam
-
General: Well Developed, No Apparent Distress, Comfortable, Conversant and Appears Chronically Ill
HEENT: Normocephalic, Atraumatic and Moist Mucous Membranes
Respiratory: Clear to Auscultation
Cardiac: Regular Rhythm and S1/S2; Negative Murmur, Rub or Gallop
GI: Soft, Nontender, Nondistended and Normal Bowel Sounds; Negative Organomegaly
Rectal: Deferred by Provider
Musculoskeletal: No Clubbing, No Cyanosis and No Edema
Skin: Negative Rash
Neuro: Awake and Alert
Psych: Calm and Apparent Dementia
Data Reviewed
-
Labs: Labs Reviewed by me
[2024-09-18 10:49] VITALS: BP 123/68
--- NOTE | 2024-09-18 11:36 | CM ---
CM following re: discharge planning.
Reviewed pt's chart, met with pt and spoke to legal guardian Mr. Thomas Gilbert over the phone to update on discharge plan progress.
Discharge order noted. Pt's legal guardian is aware, expressed his agreement with discharge and gave green light to discharge his client to [facility] for a LTC. IMM reviewed with legal guardian, he stated he is familiar with IMM, declined a
copy, IMM form placed on chart.
Pt is a LTC resident at [facility], requires total care.
A referral to [facility] made, spoke to liaison Natalie, pt is accepted for admission today.
to arrange ambulance transport, BPS. PMNC completed, left with .
[facility] nursing report: [phone]
Discharge instructions fax: [phone]
D/C plan: return back to [facility] for a LTC.
--- NOTE | 2024-09-18 13:15 | PTCARENOTE ---
Report called to LP, connected to answering machine for JHOAN Luque. Call back number and pickup time left in voicemail, pt to be picked up at 1400 by [facility].
[2024-09-18 13:22] VITALS: BP 131/66
--- NOTE | 2024-09-18 13:30 | PN.CDI ---
CDI
- -
CDI:
Physician Documentation Request
Admit Date: 09/16/24 12:48
Dear Doctor Hayley,
Please review the following and provide your response in the progress notes.
Clinical Indicators:
PN, 09/18
#...PMH dementia suspect Alzheimer type (orientated to self only at baseline),
#...Anxiety/depression, Hypothyroidism on replacement,
#...is arousable to sternal rub, not able to provide meaningful history.
# acute metabolic encephalopathy/hypoactive delirium,
#...due to recent Flu infection, in setting of severe dementia
#CXR noted MODERATE LEFT LOWER LOBE PNEUMONIA.
#...Procal neg which essentially r/o bacterial pneumonia
#...mental status improved, pt is awake and conversant, suspect back to baseline
# Hypothyroidism
#TSH elevated at 40, FT4 at 4.65
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
Based on the above and your clinical assessment, please clarify the relationship, if any, between these conditions:
Yes, acute metabolic encephalopathy is contributed to/associated with hypothyroidism
No, acute metabolic encephalopathy is not contributed to/associated with hypothyroidism
Other(please specify)
Use of terms such as suspected, likely, concern for, or probable (associated with a specific diagnosis that is being evaluated, monitored, or treated as if it exists) are acceptable and can be coded in the inpatient setting, when documented at the
time of discharge.
Thank you,
Jennifer Sumner RN BSN CCDS
CDI Specialist
Please contact via tiger text
Please use your independent medical judgment in providing your response.
--- NOTE | 2024-09-18 13:31 | W.DCSUMMARY ---
Discharge Summary
Discharge Data
Date of Admission: 09/16/24
Date of Discharge: 09/18/24
-
Pending Results: No
Hospital Course
Principal Diagnosis:
Acute metabolic encephalopathy/hypoactive delirium, due to recent Flu infection, in setting of severe dementia
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
Chronic Diagnoses:�
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 Orientated to self only at baseline.
Anxiety/depression.
Hypothyroidism. TSH elevated at 40, FT4 at 4.65. Increased Synthroid from 50 to 75 mcg.
Essential hypertension.
Spinal stenosis.
Consultations:�
None
Procedures:�
None
Clinical course:�
This is a 69-year-old female with past medical history as stated above, who presented with increased lethargy. Of note, she was diagnosed with flu 5 days prior to admission.
Problem 1:
Acute metabolic encephalopathy/hypoactive delirium, due to recent Flu infection, in setting of severe dementia.
Her chest x-ray noted moderate left lobe pneumonia, however given her procalcitonin was negative which essentially rules out bacterial pneumonia, antibiotic was not warranted (she did receive cefepime and vancomycin in the emergency room).
Her mental status improved back to baseline which is awake and conversant, orientated to self only.
Her prior to admission mirtazapine and Requip were discontinued this admission due to the sedating side effect- she can continue to hold off on these going forward.
Problem 2:
Elevated LFT suspect reactive.
Her LFT improved while in the hospital, and she can continue to monitor LFT with PCP outpatient.
Problem 3:
Hypothyroidism.
It was noted that her TSH was elevated at 40, and FT4 at 4.65.
Her prior to admission Synthroid was increased from 50 to 75 mcg
As for the rest of her medical problems, they were stable during her hospital stay.
Discharge Plan
-
Patient Disposition: Long-Term/SNF
Discharge Diagnosis/Procedures: Acute metabolic encephalopathy/hypoactive delirium, due to recent Flu infection, in setting of severe dementia;
suspect reactive transaminitis;
Hypothyroidism (TSH elevated at 40, FT4 at 4.65)
Condition: Fair
Diet: As tolerated
Activity: As tolerated
Driving Restrictions: No driving
Blood Work: LFT in 1 week with your PCP,
TSH reflex FT 4 in 4-6 weeks with your PCP
Referrals:
Robbie Martniez I., DO [Family Provider] - in less than 1 week
Additional Discharge Medication Instructions: stop further sedating meds including mirtazapine and Requip
Increased Synthroid from 50 to 75 mcg (TSH elevated at 40, FT4 at 4.65)
Prescriptions:
New
levothyroxine 75 mcg Tablet
75 mcg PO DAILY@0600 Qty: 30 0RF
Continued
acetaminophen [Tylenol] 325 mg Tablet
650 mg PO Q4HPRN PRN (Reason: mild pain)
acetaminophen [Tylenol] 325 mg Tablet
650 mg PO Q6HPRN PRN (Reason: moderate pains)
valacyclovir 500 mg Tablet
500 mg PO DAILY
valproic acid (as sodium salt) 250 mg/5 mL Solution
100 mg PO TID
lisinopril 10 mg Tablet
10 mg PO DAILY
memantine 5 mg Tablet
10 mg PO DAILY
melatonin 5 mg Tablet
5 mg PO HS
cholecalciferol (vitamin D3) [Vitamin D3] 50 mcg (2,000 unit) Tablet
50 mcg PO DAILY
ipratropium-albuterol 0.5 mg-3 mg(2.5 mg base)/3 mL Solution For Nebulization
3 ml INHALATION R QID
meloxicam 15 mg Tablet
15 mg PO DAILY
magnesium hydroxide [Milk of Magnesia] 400 mg/5 mL Suspension
2,400 mg PO HSPRN PRN (Reason: if no bm by 3rd day)
bisacodyl [Dulcolax (bisacodyl)] 10 mg Suppository
10 mg [place] DAILYPRN PRN (Reason: if no bm aftr mom)
Saccharomyces boulardii [Florastor] 250 mg Capsule
250 mg PO BID
Discontinued
calcium carbonate 500 mg calcium (1,250 mg) Tablet
500 mg PO DAILY
levothyroxine [Synthroid] 50 mcg Tablet
50 mcg PO DAILY
mirtazapine [Remeron] 15 mg Tablet
15 mg PO HS
risperidone 0.25 mg Tablet
0.25 mg PO BID Qty: 30 0RF
risperidone 0.5 mg Tablet
0.5 mg PO HS Qty: 30 0RF
amoxicillin-pot clavulanate [Augmentin] 250-125 mg Tablet
1 tab PO BID
Rx Instructions:
for 7 days starting 09/12/24
Discharge Orders:
Discharge Patient (As Directed); Ordered 09/18/24
Ordered By: Tara Hardy
Discharge Date and Time
Print Language: ITALIAN
== END 2024-09-18 14:24 | DRG 71 ==
LOC: 2 NORTH 12:48
PROVIDERS: ADMITTING PHYSICIAN Internal Medicine; EMERGENCY PHYSICIAN Emergency Medicine; FAMILY PHYSICIAN Internal Medicine
DX: G93.41 Metabolic encephalopathy (principal); F02.C3 Dementia in other diseases classified elsewhere, severe, with mood disturbance; F02.C4 Dementia in other diseases classified elsewhere, severe, with anxiety; F05 Delirium due to known physiological condition; F32.A Depression, unspecified; E03.9 Hypothyroidism, unspecified; Z79.890 Hormone replacement therapy; I10 Essential (primary) hypertension; M48.00 Spinal stenosis, site unspecified; Z66 Do not resuscitate; Z11.52 Encounter for screening for COVID-19; G30.9 Alzheimer's disease, unspecified
CPT/HCPCS: 71046; 80053; 83605; 83735; 84145; 84439; 84443; 85025; 85027; 87040; 87070; 87147; 87502; 87811; 92610; 93005; 94640; 96365; 96366; 96375; 97163; 99285

== ENCOUNTER 2025-02-26 12:07 | Emergency (ER) | payer MEDICARE, OTHER, SELFPAY ==
[2025-02-26] VITALS (8 sets, daily range): BP systolic 110–150; BP diastolic 53–119; BMI 30.2
[2025-02-26 13:13] LABS: Hematocrit 43.2 % (37.0-47.0); Hemoglobin 14.3 g/dL (12.0-16.0); Mean Corp Hgb Conc. 33.1 g/dL (33.0-37.0); Mean Corpuscular Volume 95.2 fL (81.0-99.0); Nucleated Red Blood Cells % 0 %; Platelet Count 204 10^3/uL (130-400); Red Cell Dist. Width 12.4 % (11.5-14.5)
[2025-02-26 13:29] LABS: ALT (SGPT) 13 U/L (0-35); AST (SGOT) 24 U/L (14-36); Albumin 4.5 g/dl (3.5-5.0); Alkaline Phosphatase 74 U/L (38-126); Blood Urea Nitrogen 30 mg/dl (7-17); Calcium 9.4 mg/dl (8.4-10.2); Carbon Dioxide 28 mmol/L (22-30); Chloride 107 mmol/L (98-107); Estimated Creatinine Clearance 63 ml/min; Glucose 125 mg/dl (70-99); Potassium 4.6 mmol/L (3.5-5.1); Sodium 140 mmol/L (135-145); Total Protein 7.5 g/dl (6.3-8.2); eGFR > 60.00
[2025-02-26 13:36] LABS: Depakane 24.1 ug/ml (50.0-120.0)
--- NOTE | 2025-02-26 13:46 | ED.GENMED ---
History of Present Illness
General
Chief Complaint: Change in Mental Status
Time Seen by Provider: 02/26/25 12:57
History of Present Illness
History of Present Illness:
69-year-old female with history of dementia and severe aphasia presents to the emergency department from [facility] due to refusal to participate in care. According to her nursing staff she has been refusing to participate in
any activities and refusing to get out of bed very often. She has been compliant with meds according to staff. She was noted to have subtherapeutic Depakote levels as well as abnormal TSH although a normal T4. EMS notes that the staff wanted
these levels repeated however were not able to obtain urgent lab as an outpatient which prompted them to send her to the emergency department. On arrival the patient is pleasantly confused and markedly aphasic thus making history unobtainable.
Review of Systems
Review of Systems
Allergies reviewed?: Yes
All Other Systems: ROS reviewed and negative except as documented in HPI and ROS
Phy Exam
Physical Exam
Physical Exam:
GEN: Well appearing, NAD, WDWN
HEENT: Oral mucosa moist, no scleral icterus
Cardiac: Regular rate
Lung: No respiratory distress, no tachypnea
MSK: No gross deformity or injuries
Skin: Good color, no pallor or jaundice, no rashes
Neuro: Alert, pleasantly confused with severe aphasia, moves all extremities freely
Psych: Calm, cooperative
Course
Orders/Labs/Results
Orders:
Orders
02/26/25 13:02
CMP [Comprehensive Metabolic Panel] Urgent
Complete Blood Count/With Diff Urgent
Depakane Urgent
TSH Urgent
02/26/25 14:02
Urinalysis Reflex To Culture Urgent
Date Specimen was Collected: 02/26/25
Time Specimen was Collected: 13:54
Urine Microscopic Reflex Cult Urgent
Urine Culture Urgent
CL[place] Source: U
Specimen Description:
Date Specimen was Collected: 02/26/25
Time Specimen was Collected: 13:54
02/26/25 14:57
Fosfomycin [Monurol] 3 gm PO ONCE ONE
Abnormal Lab Results
02/26/25 02/26/25
13:02 14:02
MCH 31.5 H pg
(27.0-31.0)
MPV 11.4 H fL
(7.4-10.4)
Absolute Monos (auto) 0.7 H 10^3/uL
(0.1-0.6)
BUN 30 H mg/dl
(7-17)
Glucose 125 H mg/dl
(70-99)
TSH 20.60 H uIU/ml
(0.47-4.68)
Urine Ketones 1+ A
(Negative)
Leukocyte Esterase Rfl 1+ A
(Negative)
Urine Bacteria (Reflex) Many A
(Negative)
Urine Albumin (Reflex) 2+ A
(Neg - Trace)
Valproic Acid 24.1 L ug/ml
(50.0-120.0)
02/26/25 13:02
02/26/25 13:02
Vital Signs
Initial and Last Documented VS:
Initial Vital Signs
Temp Resp BP Pulse Ox
97.5 F 18 126/58 98
02/26/25 12:14 02/26/25 12:14 02/26/25 12:14 02/26/25 12:14
Last Documented Vital Signs
Temp Pulse Resp BP Pulse Ox
98 F 87 16 134/78 99
02/26/25 16:00 02/26/25 16:00 02/26/25 16:00 02/26/25 16:00 02/26/25 16:00
MDM/Problems Addressed
MDM/Problems Addressed:
Patient subtherapeutic valproic acid has been ongoing for some time and we will recommend an increase in her valproic acid dosage. Her subclinical hypothyroidism will also warrant up titration of her levothyroxine. Both of these medication orders
were prescribed for her nursing facility. She does have bacteriuria but no obvious signs of UTI, covered with dose of fosfomycin however do not see any evidence for infectious or toxic metabolic encephalopathy. She is suitable for discharge back
to [facility] [facility]
*Pulse Oximetry
SaO2: 99
Oxygen Mode of Delivery: Room air
Patient hypoxic: no
*Critical Care Note
Total Time (30-74mins, 75-104mins- exclusive of procedures): Not Applicable
ED Attending Note
-
Portions of this chart may have been created with voice recognition software.� Occasional wrong word or��sound alike� substitutions may have occurred due to the inherent limitations of voice recognition software.
Discharge Plan
Departure
Patient Disposition: Home (Routine Discharge)
Date of Disposition: 02/26/25
Time of Disposition: 15:08
Patient with high blood pressure during this ER visit?: No
Discharge Problem:
Bacteriuria, Subclinical hypothyroidism, subtherapeutic valproic acid
Prescriptions:
New
valproic acid (as sodium salt) 250 mg/5 mL (5 mL) solution
200 mg PO TID Qty: 500 0RF
levothyroxine 100 mcg capsule
100 mcg PO DAILY Qty: 30 0RF
Discontinued
valproic acid (as sodium salt) 250 mg/5 mL Solution
100 mg PO TID
levothyroxine [Synthroid] 88 mcg Tablet
88 mcg PO DAILY
No Action
acetaminophen [Tylenol] 325 mg Tablet
650 mg PO Q6HPRN PRN (Reason: moderate pains)
valacyclovir 500 mg Tablet
500 mg PO DAILY
lisinopril 10 mg Tablet
10 mg PO DAILY
memantine 5 mg Tablet
10 mg PO HS
melatonin 5 mg Tablet
5 mg PO HS
cholecalciferol (vitamin D3) [Vitamin D3] 50 mcg (2,000 unit) Tablet
50 mcg PO DAILY
meloxicam 15 mg Tablet
15 mg PO DAILY
magnesium hydroxide [Milk of Magnesia] 400 mg/5 mL Suspension
2,400 mg PO HSPRN PRN (Reason: if no bm by 3rd day)
bisacodyl [Dulcolax (bisacodyl)] 10 mg Suppository
10 mg [place] DAILYPRN PRN (Reason: if no bm aftr mom)
Referrals:
Sai Avendano MD [Family Provider, Family Practice]
Activity Restrictions/Additional Instructions:
Please increase levothyroxine to 100mcg daily
Please increase valproic acid to 200mg TID
These prescriptions were sent to [facility]. Stop administration of the 88mcg levothyroxine and the 100mg valproic acid once available
Have TSH repeated in 1 month and valproic acid levels rechecked in 5 days
Interventions
Interventions:
*Risk Screen - Suicide Last Done: 02/26/25 12:59
*General Assessment Last Done: 02/26/25 12:59
*Neglect/Abuse Screening Last Done: 02/26/25 12:59
*ED- Fall Risk Assessment Last Done: 02/26/25 12:59
*ED COVID-19 Vaccine History Last Done: 02/26/25 15:39
*ED Influenza Vaccine History Last Done: 02/26/25 15:39
ED- Cardiac Assessment Last Done: 02/26/25 15:39
ED- Neurological Assessment Last Done: 02/26/25 13:52
ED-Psychological Assessment Last Done: 02/26/25 15:39
ED- Pulmonary Assessment Last Done: 02/26/25 15:39
ED Swallowing Screen Last Done: 02/26/25 13:52
Discharge Date and Time
Print Language: UPPER SORBIAN
[2025-02-26 14:06] LABS: TSH 20.60 uIU/ml (0.47-4.68)
[2025-02-26 14:29] LABS: Urine Character Slightly Cloudy (Clear)
[2025-02-26 14:39] LABS: Urine Squamous Cell >30 /LPF (Few)
[2025-02-26 14:41] LABS: Urine Urothelial Cell 0-2 /LPF (FEW)
[2025-02-26 14:44] LABS: Urine Red Blood Cell 0-2 /HPF (0-2)
[2025-02-26] MEDS: MONUROL 3 GM PO (15:18)
== END 2025-02-26 16:41 | disposition home or self-care (01) ==
LOC: EMR 12:07
PROVIDERS: Physician Assistant; EMERGENCY PHYSICIAN Emergency Medicine; FAMILY PHYSICIAN Family Medicine
DX: R82.71 Bacteriuria (principal); E03.8 Other specified hypothyroidism; R89.2 Abnormal level of other drugs, medicaments and biological substances in specimens from other organs, systems and tissues; F03.90 Unspecified dementia, unspecified severity, without behavioral disturbance, psychotic disturbance, mood disturbance, and anxiety; R47.01 Aphasia
CPT/HCPCS: 99283; 80053; 80164; 81003; 81015; 84443; 85025; 87086

== ENCOUNTER 2025-04-25 13:15 | Inpatient (IN) | payer MEDICARE, OTHER, SELFPAY ==
[2025-04-25 10:30] VITALS: BP 146/64
[2025-04-25 10:31] VITALS: BP 146/64
[2025-04-25 10:36] VITALS: BMI 29.6
[2025-04-25] MEDS: TYLENOL 650 MG PO (10:44)
--- NOTE | 2025-04-25 10:48 | ED.GENMED ---
History of Present Illness
<Janet Sunshine PA-C - Last Filed: 04/25/25 15:25>
General
Chief Complaint: Musculo-Skeletal Complaint
Source: patient
Exam Limitations: dementia
Time Seen by Provider: 04/25/25 10:30
Nursing documentation reviewed up to this point in time: agreed with
History of Present Illness
History of Present Illness:
see MDM
Review of Systems
<Jaent Sunshine PA-C - Last Filed: 04/25/25 15:25>
Review of Systems
Allergies reviewed?: Yes
All Other Systems: Not applicable
Phy Exam
<Janet Sunshine PA-C - Last Filed: 04/25/25 15:25>
Physical Exam
Physical Exam:
see MDM
Course
<Janet Sunshine PA-C - Last Filed: 04/25/25 15:25>
Orders/Labs/Results
Orders:
Orders
04/25/25 10:40
CT Head W/o Iv Contrast Urgent
Comment:
Reason For Exam: fall dementia
Hip, Right 2-3 Views [CR Hip - RT w/wo Pel 2-3 Vw*] Urgent
Comment:
Reason For Exam: R hip fx fall
Include a pelvis x-ray?: Yes
04/25/25 10:41
Acetaminophen [Tylenol] 650 mg PO NOW STA
04/25/25 10:42
Basic Metabolic Panel Urgent
Complete Blood Count/With Diff Urgent
04/25/25 11:07
Morphine Sulfate 2 mg IV NOW STA
04/25/25 12:54
Admit/Transfer Patient As Directed
Co-Sign Provider:
Level of Care: Inpatient admission
Assign to:: Medical/Surgical
Physician / Group: Hospitalist
Diagnosis: Right hip fracture
Reason for Hospitalization: Right hip fracture
Expected length of stay greater than two midnights?: Yes
ELOS- Estimated Length of Stay in days: 3
I certify the patient meets the requirements for IP care: Yes
PRN Pain Medication Management As Directed
May give lesser potent ordered pain med per pt: Yes
preference::
Protocol:: Medication orders for pain may be administered in a
manner that supports deferring to patient preference
when the pt is:
- Requesting an ordered lesser potent pain medication.
Least to most potent pain medications are defined
as: acetaminophen < NSAID < tramadol < opioids
(morphine, oxycodone, hydromorphone).
- Requesting a lesser dose of the same medication IF
ORDERED.
- Requesting a less intrusive route of administration
if both routes are prescribed by the provider (PO <
IV).
04/25/25 12:57
Code Status As Directed
Resuscitation Status: Full Code
04/26/25 Breakfast
NPO
Allow oral meds: Yes
Allow clear liquids: No
NPO with Ice Chips: No
04/26/25 07:00
CeFAZolin 2 GRAM [Ancef] 2 grams in 10 ml IV PRE PROCEDURE
Povidone Iodine 10% Solution [Povidone Iodine 10%] 114 ml 0.9% Sod Chloride 3000 ml Irr [Nss Irrigation Bag] 3,000 ml IRRIG OR
Tranexamic Acid 3,000 mg 0.9% Sodium Chloride 250 ml [Nss] 250 ml IRRIG OR
Abnormal Lab Results
04/25/25
10:42
WBC 14.0 H 10^3/uL
(4.8-10.8)
MCH 31.3 H pg
(27.0-31.0)
MPV 11.4 H fL
(7.4-10.4)
Abs Immat Gran (auto) 0.1 H 10^3/uL
(0-0.05)
Absolute Neuts (auto) 10.5 H 10^3/uL
(1.4-6.5)
Absolute Monos (auto) 1.1 H 10^3/uL
(0.1-0.6)
Immature Gran % 0.8 H %
(0-0.5)
Lymphocytes % 14.4 L %
(20.5-51.1)
BUN 30 H mg/dl
(7-17)
Glucose 114 H mg/dl
(70-99)
04/25/25 10:42
04/25/25 10:42
Vital Signs
Initial and Last Documented VS:
Initial Vital Signs
Temp Pulse Resp BP Pulse Ox
36.4 C 73 18 146/64 97
04/25/25 10:30 04/25/25 10:30 04/25/25 10:30 04/25/25 10:30 04/25/25 10:30
Last Documented Vital Signs
Temp Pulse Resp BP Pulse Ox
36.4 C 63 11 138/79 93
04/25/25 10:30 04/25/25 12:45 04/25/25 12:45 04/25/25 12:09 04/25/25 12:15
<Ani Lyn MD - Last Filed: 04/25/25 13:45>
Orders/Labs/Results
Orders:
Orders
04/25/25 10:40
CT Head W/o Iv Contrast Urgent
Comment:
Reason For Exam: fall dementia
Hip, Right 2-3 Views [CR Hip - RT w/wo Pel 2-3 Vw*] Urgent
Comment:
Reason For Exam: R hip fx fall
Include a pelvis x-ray?: Yes
04/25/25 10:41
Acetaminophen [Tylenol] 650 mg PO NOW STA
04/25/25 10:42
Basic Metabolic Panel Urgent
Complete Blood Count/With Diff Urgent
04/25/25 11:07
Morphine Sulfate 2 mg IV NOW STA
04/25/25 12:54
Admit/Transfer Patient As Directed
Co-Sign Provider:
Level of Care: Inpatient admission
Assign to:: Medical/Surgical
Physician / Group: Hospitalist
Diagnosis: Right hip fracture
Reason for Hospitalization: Right hip fracture
Expected length of stay greater than two midnights?: Yes
ELOS- Estimated Length of Stay in days: 3
I certify the patient meets the requirements for IP care: Yes
PRN Pain Medication Management As Directed
May give lesser potent ordered pain med per pt: Yes
preference::
Protocol:: Medication orders for pain may be administered in a
manner that supports deferring to patient preference
when the pt is:
- Requesting an ordered lesser potent pain medication.
Least to most potent pain medications are defined
as: acetaminophen < NSAID < tramadol < opioids
(morphine, oxycodone, hydromorphone).
- Requesting a lesser dose of the same medication IF
ORDERED.
- Requesting a less intrusive route of administration
if both routes are prescribed by the provider (PO <
IV).
04/25/25 12:57
Code Status As Directed
Resuscitation Status: Full Code
04/26/25 Breakfast
NPO
Allow oral meds: Yes
Allow clear liquids: No
NPO with Ice Chips: No
04/26/25 07:00
CeFAZolin 2 GRAM [Ancef] 2 grams in 10 ml IV PRE PROCEDURE
Povidone Iodine 10% Solution [Povidone Iodine 10%] 114 ml 0.9% Sod Chloride 3000 ml Irr [Nss Irrigation Bag] 3,000 ml IRRIG OR
Tranexamic Acid 3,000 mg 0.9% Sodium Chloride 250 ml [Nss] 250 ml IRRIG OR
Abnormal Lab Results
04/25/25
10:42
WBC 14.0 H 10^3/uL
(4.8-10.8)
MCH 31.3 H pg
(27.0-31.0)
MPV 11.4 H fL
(7.4-10.4)
Abs Immat Gran (auto) 0.1 H 10^3/uL
(0-0.05)
Absolute Neuts (auto) 10.5 H 10^3/uL
(1.4-6.5)
Absolute Monos (auto) 1.1 H 10^3/uL
(0.1-0.6)
Immature Gran % 0.8 H %
(0-0.5)
Lymphocytes % 14.4 L %
(20.5-51.1)
BUN 30 H mg/dl
(7-17)
Glucose 114 H mg/dl
(70-99)
04/25/25 10:42
04/25/25 10:42
Vital Signs
Initial and Last Documented VS:
Initial Vital Signs
Temp Pulse Resp BP Pulse Ox
36.4 C 73 18 146/64 97
04/25/25 10:30 04/25/25 10:30 04/25/25 10:30 04/25/25 10:30 04/25/25 10:30
Last Documented Vital Signs
Temp Pulse Resp BP Pulse Ox
36.4 C 63 11 138/79 93
04/25/25 10:30 04/25/25 12:45 04/25/25 12:45 04/25/25 12:09 04/25/25 12:15
<Janet Sunshine PA-C - Last Filed: 04/25/25 15:25>
MDM/Problems Addressed
Differential Diagnosis Includes:
see MDM
MDM/Problems Addressed:
Note:
CHIEF COMPLAINT(S)
Bloody nose and possible headache.
HISTORY OF PRESENT ILLNESS
The patient 69 y/o a female with a past medical history of dementia, here from OR after unwitnessed fall today.
pt was apparently in the dining area where she was sitting in her wheelchair
she had just been rounded on 15 minutes before the fall
the RN heard someone yell and she found pt on the ground
R hip ext rotated and shortened.
she has severe dementia and can answer minimal questions, doesn't recall the fall
knows name and birthdate
this seems baseline
no pain reported but she calls out in pain with movement of the R hip only
. She appeared to be uncertain about her surroundings at times but eventually indicated awareness by stating she was 'in this place.'
PAST MEDICAL AND SURIGICAL HISTORY
The patient has a history of dementia.
SOCIAL DETERMINANTS AFFECTING HEALTH
The patient possibly experiences confusion about her environment, which could affect her daily functioning and care.
REVIEW OF SYSTEMS
- Neurological: Developing headache, history of dementia.
- Ear, Nose, and Tongue: Bloody nose noted.
PHYSICAL EXAM
GENERAL: Alert , demenita
EYE: pupils equal and reactive
NECK: Supple
ENT: o/p clr, mmm.
blood dried on nose; no epistaxis currently
CARDIAC: Regular rate and rhythm .
LUNGS: Clear breath sounds bilaterally, no acute respiratory distress, no wheezes/rales/rhonchi
ABDOMEN: Soft, without focal tenderness, no r/g, no cvat, normal bowel sounds
NEUROLOGICAL: Alert and oriented x 1 only; baseline; movign all extremities;
SKIN: Warm and dry, skin intact.
MUSCULOSKELETAL: R hip externally rotated and shortened; painful rom
nomral pulse
PSYCH: dementia
PROBLEM LIST
- Acute: Bloody nose, developing headache.
- Chronic: Dementia
PLAN
- Evaluate the patients requirement for pain relief as she expressed interest in medication for pain.
- Monitor for any progression of the headache.
- Observe for any need for interventions relating to the bloody nose or potential recurrent nosebleeds.
DIFFERENTIAL DIAGNOSIS
The Differential Diagnosis includes, in no particular order and is not limited to:
1. Epistaxis
2. Sinusitis
3. Hypertension
4. Cerebrovascular accident
5. Trauma
6. Allergic rhinitis
7. Coagulopathy
8. Medication side effects
9. Intracranial hemorrhage
10. Anxiety-induced symptoms
CARE-UPDATE
04/25/25 - 12:12
The x-rays confirm a right femoral neck fracture with displacement. Dr. Santos from orthopedics is aware of the case. The patients guardian, Thomas, has been contacted and is en route to provide consent for surgery. The patient will be admitted
to the hospital for further management.
<Janet Sunshine PA-C - Last Filed: 04/25/25 15:25>
*Pulse Oximetry
SaO2: 97
Oxygen Mode of Delivery: Room air
Patient hypoxic: no (97)
*Critical Care Note
Total Time (30-74mins, 75-104mins- exclusive of procedures): Not Applicable
ED Attending Note
<Janet Sunshine PA-C - Last Filed: 04/25/25 15:25>
-
Portions of this chart may have been created with voice recognition software.� Occasional wrong word or��sound alike� substitutions may have occurred due to the inherent limitations of voice recognition software.
<Ani Lyn MD - Last Filed: 04/25/25 13:45>
ED Attending Note
Patient seen and examined by attending physician: Yes
I performed the substantive portion of visit, reviewed & personally made and approve the management plan that is documented in note by myself or LAURA.: Yes
ED Attending Note:
Pt appears nontoxic and comfortable. cspine nontender. strong pulses in bilateral feet.
Discharge Plan
Departure
Patient Disposition: Admit
Date of Disposition: 04/25/25
Time of Disposition: 12:07
Admit to: Med/Surg
Presentation/result/management discussed w/ accepting MD/DO: Hospitalist
Condition: Fair
Covid-19: Not Applicable
Discharge Problem:
Closed fracture of right hip
Interventions
Interventions:
*Risk Screen - Suicide Last Done: 04/25/25 10:30
*General Assessment Last Done: 04/25/25 10:30
*Neglect/Abuse Screening Last Done: 04/25/25 10:30
ED-Musculoskeletal Assessment Last Done: 04/25/25 10:36
[2025-04-25 11:00] VITALS: BP 132/57
[2025-04-25 11:03] LABS: Hematocrit 41.8 % (37.0-47.0); Hemoglobin 14.1 g/dL (12.0-16.0); Mean Corp Hgb Conc. 33.7 g/dL (33.0-37.0); Mean Corpuscular Volume 92.9 fL (81.0-99.0); Nucleated Red Blood Cells % 0 %; Platelet Count 192 10^3/uL (130-400); Red Cell Dist. Width 12.3 % (11.5-14.5)
[2025-04-25 11:32] LABS: Blood Urea Nitrogen 30 mg/dl (7-17); Calcium 9.5 mg/dl (8.4-10.2); Carbon Dioxide 27 mmol/L (22-30); Chloride 104 mmol/L (98-107); Estimated Creatinine Clearance 63 ml/min; Glucose 114 mg/dl (70-99); Sodium 136 mmol/L (135-145); eGFR > 60.00
[2025-04-25] MEDS: MORPHINE SULFATE 2 MG IV (12:07)
[2025-04-25 12:09] VITALS: BP 138/79
--- NOTE | 2025-04-25 12:47 | W.PN.UPDATE ---
Update Note
Progress Note Update
Full orthopedic consult dictated: Patient seen with Dr. Malone.
Patient unfortunately sustained right femoral neck fracture falling out of the wheelchair earlier today. No other additional injuries noted. Tentative plan for right hip hemiarthroplasty April 26, [address] Malone. Surgical
location marked. She will be n.p.o. after midnight Antibiotics/TXA irrigation ordered for operating room. Unsuccessful attempted to contact Thomas Butts at [phone] patient's guardian..
--- NOTE | 2025-04-25 13:00 | HPS.HSE ---
Addendum entered and electronically signed by David Pratt MD 04/25/25 22:44:
I have personally supervised the history, physical exam, medical decision-making, and care plan for this patient in conjunction with the resident. I have reviewed and discussed the resident's documentation and findings. I confirm that this note
accurately reflects my supervision and input in the care of this patient.
History of Presenting Illness
69-year-old female with history of hypothyroidism, essential hypertension, insomnia, dementia, presented after a mechanical fall, involving her falling from her wheelchair. Limited history from patient due to dementia. She has a legal guardian at
bedside. Patient resides at [facility]. Patient is 90% wheelchair-bound and she fell off from the wheelchair this morning.
Physical Exam
General: Comfortable, Conversant
HEENT: NormoCephalic, Anicteric and Moist mucous membranes
Respiratory: Clear
Cardiac: S1/S2 and Regular Rhythm
GI: Soft, Non Tender and Non Distended. Positive bowel sounds.
Musculoskeletal: No Edema. RLE neurovascularly intact
Skin: Warm and Dry
Neuro: Awake, Alert and Other
Psych: Apparent Dementia
Right femoral neck fracture
Mechanical fall
Hemodynamically stable
No active bleeding
CT head negative for trauma, stable large ventricles possible NPH.
Tentative plan for right hip hemiarthroplasty tomorrow at 8 PM per ortho
Abx/TXA ordered by orthopedics team for operation room.
Continue regular diet today
NPO after midnight.
Non weight bearing
Pain control
PT/OT post surgery
Hold meloxicam
Patient si cleared for the surgery, benefits of surgery outweighs the risks.
#Preoperative risk
Revised cardiac risks index less than 1%
NSQIP - low risk
STOPBANG- low
History of dementia
Continue memantine, melatonin
Has a legal guardian involved in the care
Not able to answer questions, speaking gibberish.
Essential hypertension
Hold lisinopril in setting of possible postoperative hypotension
IV hydralazine as needed for SBP >160
Monitor blood pressure
Hypothyroidism
Continue levothyroxine
Ambulatory dysfunction
wheel chair bound
PT/OT post surgery
Regular diet
NPO after midnight
Full code
SCD
Original Note:
Family Physician
-
Family Physician: Sai Avendano MD
Chief Complaint
-
Fall
History of Present Illness
69-year-old female with history of hypothyroidism, essential hypertension, insomnia, dementia, presents after a fall. Limited history from patient due to dementia. She has a legal guardian at bedside. Patient resides at [facility]. Patient is
90% wheelchair-bound and she fell off from the wheelchair this morning. Patient was not able to answer any of my questions, she is awake, alert, not oriented to place. In the ED she is hemodynamically stable. Workup shows right femoral neck
fracture.
Medical History
Past Medical History
Past Medical History: Reports Dementia, HTN, Hypothyroidism and Other (Thyroid cancer)
Past Surgical History: Reports None
Social History
Tobacco: Non-smoker
Alcohol: None
Drug: None
Employment: Retired
Family History
Family History: Not pertinent
Allergies / Home Medications
Allergies reflects when Allergies were last updated in [employer].
Home Medications with original date entered in [employer]
Allergy/Medication List:
Allergies
Allergy/AdvReac Type Severity Reaction Status Date / Time
No Known Allergies Allergy Verified 02/26/25 12:57
Home Medications
acetaminophen 325 mg tablet (Tylenol) 650 mg PO Q6HPRN PRN moderate pains 03/23/24
cholecalciferol (vitamin D3) 50 mcg (2,000 unit) tablet (Vitamin D3) 50 mcg PO DAILY Supplement 03/23/24
lisinopril 10 mg tablet 5 mg PO DAILY Blood Pressure 03/23/24
melatonin 5 mg tablet 5 mg PO HS Sleep 03/23/24
memantine 5 mg tablet 10 mg PO HS Mental Health/Anxiety 03/23/24
valacyclovir 500 mg tablet 500 mg PO DAILY ANTI VIRAL 03/23/24
bisacodyl 10 mg rectal suppository (Dulcolax (bisacodyl)) 10 mg DE DAILYPRN PRN if no bm aftr mom 09/16/24
magnesium hydroxide 400 mg/5 mL oral suspension (Milk of Magnesia) 2,400 mg PO HSPRN PRN if no bm by 3rd day 09/16/24
meloxicam 15 mg tablet 15 mg PO DAILY Anti-Inflammatory 09/16/24
buspirone 5 mg tablet 5 mg PO BID Mental Health/Anxiety 04/25/25
levothyroxine 100 mcg capsule 100 mcg PO DAILY Thyroid 04/25/25
triamcinolone acetonide 0.1 % topical cream 1 applic topical DAILY b/l feet 04/25/25
valproic acid (as sodium salt) 250 mg/5 mL (5 mL) oral solution 125 mg PO TID 04/25/25
Review of Systems
-
Unable to obtain full review of systems at this time due to: Dementia
History Source: Other (guardian at bedside )
Physical Exam
Vital Signs
Vital Signs
Temp Pulse Resp BP Pulse Ox
97.6 F 73 18 146/64 97
04/25/25 10:30 04/25/25 10:30 04/25/25 10:30 04/25/25 10:30 04/25/25 10:50
Physical Exam
General: Comfortable, Conversant and Other (speaking gibberish.)
HEENT: NormoCephalic, Anicteric and Moist mucous membranes
Respiratory: Clear
Cardiac: S1/S2 and Regular Rhythm
GI: Soft, Non Tender and Non Distended
Musculoskeletal: No Edema
Skin: Warm and Dry
Neuro: Awake, Alert and Other; No Oriented
Hematologic/Lymphatic: No Lymphadenopathy
Psych: Apparent Dementia
Laboratory Results
-
04/25/25 10:42
04/25/25 10:42
Laboratory Results
Total Bilirubin Cancelled 04/25/25 10:42
AST Cancelled 04/25/25 10:42
ALT Cancelled 04/25/25 10:42
Alkaline Phosphatase Cancelled 04/25/25 10:42
Data Reviewed
-
Diagnostic Radiology: Report Reviewed by me and Discussed with Physician
CT Scan: Report Reviewed by me and Discussed with Physician
Lab Data: Labs Reviewed by me and Discussed with Physician
Impression/Plan
-
IMPRESSION:
Right femoral neck fracture
History of dementia
Essential hypertension
Hypothyroidism
Ambulatory dysfunction
PLAN:
Right femoral neck fracture
Mechanical fall
Hemodynamically stable
No active bleeding
CT head negative for trauma, stable large ventricles possible NPH.
Tentative plan for right hip hemiarthroplasty tomorrow at 8 PM per ortho
Abx/TXA ordered by orthopedics team for operation room.
Continue regular diet today
NPO after midnight.
Non weight bearing
Pain control
PT/OT post surgery
Hold meloxicam
#Preoperative risk
Revised cardiac risks index less than 1%
NSQIP - low risk
STOPBANG- low
History of dementia
Continue memantine, melatonin
Has a legal guardian involved in the care
Not able to answer questions, speaking gibberish.
Essential hypertension
Hold lisinopril
IV hydralazine as needed for SBP >160
Monitor blood pressure
Hypothyroidism
Continue levothyroxine
Ambulatory dysfunction
wheel chair bound
PT/OT post surgery
Regular diet
NPO after midnight
Full code
SCD
--- NOTE | 2025-04-25 13:44 | CM ---
Chart reviewed.
Spoke with RN at [facility]
Hx of Dementia
LTC resident at [facility]
Mostly w/c bound and requires total care
Plan for right hip surgery tomorrow at 8 pm per Ortho
PT eval after surgery
DCP is to go back to LTC with PT/OT vs SNF
[facility]
phone number [phone]
fax number [phone]
CM will continue to follow up for dcp needs
[2025-04-25 15:41] VITALS: BP 139/63
[2025-04-25] MEDS: DEPAKENE 125 MG PO ×2 (16:48→21:46)
[2025-04-25] MEDS: DILAUDID 0.25 MG IV (20:12)
[2025-04-25] MEDS: BUSPAR 5 MG PO (20:13)
[2025-04-25] MEDS: DESENEX/MITRAZOL/ZEASORB 1 APPLIC TOPICAL (20:13)
[2025-04-25] MEDS: MELATONIN 5 MG PO (21:46)
[2025-04-25] MEDS: NAMENDA 10 MG PO (21:47)
[2025-04-25 23:16] VITALS: BP 135/58
[2025-04-26] VITALS (11 sets, daily range): BP systolic 103–135; BP diastolic 37–95; PULSE 94; O2SAT 91; BMI 28.3
[2025-04-26] MEDS: SYNTHROID 100 MCG PO (05:08)
--- NOTE | 2025-04-26 07:48 | PTCARENOTE ---
Patient off unit at this time, transported to OR.
--- NOTE | 2025-04-26 08:23 | W.PN.HOSP.TC ---
Today's Communication/Plan
-
Fever 100.7 post-op, could just be post-op inflammatory state, but checking blood cultures anyway since no obvious sign of infection
Post-Op care
Will need PT/OT
Assessment / Plan
Assessment / Plan
Physical Exam
General: Comfortable, Conversant
HEENT: NormoCephalic, Anicteric and Moist mucous membranes
Respiratory: Clear
Cardiac: S1/S2 and Regular Rhythm
GI: Soft, Non Tender and Non Distended. Positive bowel sounds.
Musculoskeletal: No Edema. RLE neurovascularly intact
Skin: Warm and Dry
Neuro: Awake, Alert and Other
Psych: Apparent Dementia
Assessment/Plan
69-year-old female with history of hypothyroidism, essential hypertension, insomnia, dementia, presented after a mechanical fall, involving her falling from her wheelchair. Limited history from patient due to dementia. She has a legal guardian at
bedside. Patient resides at [facility]. Patient is 90% wheelchair-bound and she fell off from the wheelchair this morning.
Right femoral neck displaced fracture status post right hip cemented bipolar endoprosthesis, on 04/26/[address] Malone
Mechanical fall
Hemodynamically stable
No active bleeding
CT head negative for trauma, stable large ventricles possible NPH.
Post-op weight bearing/activity restrictions as per ortho recommendations
Pain control
PT/OT post surgery
Hold home Meloxicam for now
Patient was cleared for the surgery, benefits of surgery outweighs the risks as well -- Revised cardiac risks index less than 1%; NSQIP - low risk; STOPBANG- low
#New Fever Post-Op 04/26/25 morning
-No signs or symptoms of infection whatsoever i.e. no new joint swelling or redness, no cough/SOB, no abnormal urinary symptoms, no new skin redness, no concern for [employer] infection
-Check blood cultures to be safe (ordered)
History of dementia
Continue memantine, melatonin
Has a legal guardian involved in the care
Not able to answer questions, speaking gibberish.
Essential hypertension
Hold lisinopril in setting of possible postoperative hypotension --> if BP stays okay on 04/27/25, and renal function and potassium okay, then can resume it
IV hydralazine as needed for SBP >160
Monitor blood pressure
Hypothyroidism
Continue levothyroxine
Ambulatory dysfunction
wheel chair bound
PT/OT post surgery
Full code
Aspirin for DVT prophylaxis
Anticipated Discharge: 24 - 48 hours
Subjective/Interval History
-
Date of Service: April 26, 2025
Patient was seen and examined. She had a fever post-op this morning of 100.7 F. No signs or symptoms of any infection.
Objective Data
-
Labs:
Laboratory Results
04/26/25
06:00
WBC Pending
Hgb Pending
Hct Pending
Plt Count Pending
Sodium Pending
Potassium Pending
Chloride Pending
Carbon Dioxide Pending
BUN Pending
Creatinine Pending
Glucose Pending
Calcium Pending
Vital Signs:
Vital Signs
Temp Pulse Resp BP Pulse Ox
99.4 F 78 18 135/58 95
04/25/25 23:16 04/25/25 23:16 04/25/25 23:16 04/25/25 23:16 04/26/25 00:11
I&O
04/25/25 04/26/25 04/27/25
06:59 06:59 06:59
Intake Total 100 / 100
Balance 100 / 100
--- NOTE | 2025-04-26 09:46 | CM ---
Referral sent to [facility] via [facility] for return when stable.
[2025-04-26] MEDS: ROXICODONE 5 MG PO (11:17)
[2025-04-26] MEDS: NSS 1000 IV (12:24)
[2025-04-26 12:48] LABS: Hematocrit 37.4 % (37.0-47.0); Hemoglobin 12.8 g/dL (12.0-16.0); Mean Corp Hgb Conc. 34.2 g/dL (33.0-37.0); Mean Corpuscular Volume 93.0 fL (81.0-99.0); Nucleated Red Blood Cells % 0 %; Platelet Count 144 10^3/uL (130-400); Red Cell Dist. Width 12.4 % (11.5-14.5)
[2025-04-26 13:01] LABS: Blood Urea Nitrogen 18 mg/dl (7-17); Calcium 8.0 mg/dl (8.4-10.2); Carbon Dioxide 24 mmol/L (22-30); Chloride 104 mmol/L (98-107); Estimated Creatinine Clearance 61 ml/min; Glucose 160 mg/dl (70-99); Potassium 4.0 mmol/L (3.5-5.1); Sodium 134 mmol/L (135-145); eGFR > 60.00
[2025-04-26] MEDS: DESENEX/MITRAZOL/ZEASORB 1 APPLIC TOPICAL ×2 (13:30→19:51)
[2025-04-26] MEDS: TRIAMCINOLONE ACETONIDE 0.1% CREAM TOPICAL (13:31)
[2025-04-26] MEDS: VALTREX 500 MG PO (13:32)
[2025-04-26] MEDS: DEPAKENE 125 MG PO ×3 (13:32→21:18)
[2025-04-26] MEDS: BUSPAR 5 MG PO ×2 (13:32→19:46)
[2025-04-26] MEDS: VITAMIN D3 (cholecalciferol) 50 MCG PO (13:32)
[2025-04-26] MEDS: ANCEF 5 IV (17:53)
[2025-04-26] MEDS: ASPIRIN 325 MG PO (17:54)
[2025-04-26] MEDS: COLACE 100 MG PO (19:46)
[2025-04-26] MEDS: SENOKOT 17.2 MG PO (19:46)
[2025-04-26] MEDS: DECADRON 4 MG PO (19:46)
[2025-04-26] MEDS: MELATONIN 5 MG PO (21:18)
[2025-04-26] MEDS: NAMENDA 10 MG PO (21:18)
[2025-04-27] MEDS: ANCEF 5 IV (00:10)
[2025-04-27 03:17] VITALS: BP 132/72
[2025-04-27] MEDS: DILAUDID 0.25 MG IV (03:42)
[2025-04-27 03:45] LABS: Hematocrit 33.6 % (37.0-47.0); Hemoglobin 11.2 g/dL (12.0-16.0); Mean Corp Hgb Conc. 33.3 g/dL (33.0-37.0); Mean Corpuscular Volume 97.4 fL (81.0-99.0); Platelet Count 141 10^3/uL (130-400); Red Cell Dist. Width 12.5 % (11.5-14.5)
[2025-04-27 04:10] LABS: Albumin 3.5 g/dl (3.5-5.0); Blood Urea Nitrogen 24 mg/dl (7-17); Calcium 8.7 mg/dl (8.4-10.2); Carbon Dioxide 22 mmol/L (22-30); Chloride 107 mmol/L (98-107); Estimated Creatinine Clearance 55 ml/min; Glucose 123 mg/dl (70-99); Potassium 4.5 mmol/L (3.5-5.1); Sodium 136 mmol/L (135-145); eGFR > 60.00
--- NOTE | 2025-04-27 05:52 | W.PN.ORTHO ---
Today's Communication / Plan
-
Appreciate the primary team, continue Tx
Dispo likely SNF, appreciate CM
Trend Hgb, AM labs pending
Continue WBAT B/L LEs on walker/assistance
PT/OT, THPs x 6 weeks
Continue ASA 325mg daily x 4 weeks for DVT ppx
Pain control, avoid narcotics please
Dressing to remain 7-10 days post-op
[place] out 2-3 weeks post-op (SNF or office)
If rebecca out at SNF outpatient Ortho follow-up 4 weeks
Assessment
.
Distal Motor Intact: Yes
Dressing:
Clean, dry and intact. Primaseal/compression in place right hip
Assessment:
POD#1 Right hip Mariano
Calf soft, nontender
Plan
.
Surgery / Date: Right hip Mariano/May 14 (Faisal)
DVT Prophylaxis: Aspirin
Activity:
Out of bed. WBAT B/L LEs on walker
PT/OT, THPs x 6 weeks
Discharge Plan: SNF (Appreciate CM)
Subjective
.
.:
Patient resting comfortably this AM. Pleasantly confused
Vital Signs and Labs
.
Vital Signs and Labs:
Lab Results
04/27/25 03:30
Temp Pulse Resp BP Pulse Ox
98.3 F 82 18 132/72 96
04/27/25 03:17 04/27/25 03:17 04/27/25 03:17 04/27/25 03:17 04/27/25 03:17
Non-invasive Hgb result: 14.1
[2025-04-27] MEDS: SYNTHROID 100 MCG PO (05:56)
[2025-04-27 08:30] VITALS: BP 126/58
[2025-04-27] MEDS: DEPAKENE 125 MG PO ×3 (09:01→21:08)
[2025-04-27] MEDS: DECADRON 4 MG PO ×2 (09:01→21:08)
[2025-04-27] MEDS: SENOKOT 17.2 MG PO ×2 (09:02→21:08)
[2025-04-27] MEDS: BUSPAR 5 MG PO ×2 (09:02→21:08)
[2025-04-27] MEDS: MOBIC 15 MG PO (09:02)
[2025-04-27] MEDS: VALTREX 500 MG PO (09:03)
[2025-04-27] MEDS: VITAMIN D3 (cholecalciferol) 50 MCG PO (09:03)
[2025-04-27] MEDS: ASPIRIN 325 MG PO (09:04)
[2025-04-27] MEDS: COLACE PO (09:06)
[2025-04-27] MEDS: TRIAMCINOLONE ACETONIDE 0.1% CREAM TOPICAL (09:13)
[2025-04-27] MEDS: DESENEX/MITRAZOL/ZEASORB 1 APPLIC TOPICAL ×2 (09:15→21:10)
--- NOTE | 2025-04-27 09:18 | W.PN.HOSP.TC ---
Today's Communication/Plan
-
Check urine analysis, follow-up on blood cultures
Possible discharge to [facility] tomorrow
Assessment / Plan
Assessment / Plan
Physical Exam
General: Comfortable, Conversant
HEENT: NormoCephalic, Anicteric and Moist mucous membranes
Respiratory: Clear
Cardiac: S1/S2 and Regular Rhythm
GI: Soft, Non Tender and Non Distended. Positive bowel sounds.
Musculoskeletal: No Edema. RLE neurovascularly intact
Skin: Warm and Dry
Neuro: Awake, Alert and Other
Psych: Apparent Dementia
Assessment/Plan
69-year-old female with history of hypothyroidism, essential hypertension, insomnia, dementia, presented after a mechanical fall, involving her falling from her wheelchair. Limited history from patient due to dementia. She has a legal guardian at
bedside. Patient resides at [facility]. Patient is 90% wheelchair-bound and she fell off from the wheelchair this morning.
Right femoral neck displaced fracture status post right hip cemented bipolar endoprosthesis, on 04/26/[address] Malone
Mechanical fall
Hemodynamically stable
No active bleeding
CT head negative for trauma, stable large ventricles possible NPH.
Patient was cleared for the surgery, benefits of surgery outweighs the risks as well -- Revised cardiac risks index less than 1%; NSQIP - low risk; STOPBANG- low
Appreciate orthopedic surgery input, status post ORIF 04/26
Pain control, laxatives, PT/OT, plan to return back to [facility] long-term care
Continue aspirin 325 mg daily for 4 weeks for DVT prophylaxis thru 05/23/25
#New Fever Post-Op 04/26/25 morning
-No signs or symptoms of infection whatsoever i.e. no new joint swelling or redness, no cough/SOB, no abnormal urinary symptoms, no new skin redness, no concern for STATION ENGINEER MAIN LINE infection
-Check UA, f/u on blood cultures drawn 04/26
History of dementia
Continue memantine, melatonin
Has a legal guardian involved in the care
Not able to answer questions, speaking gibberish.
Essential hypertension
Hold lisinopril due to soft BP
Monitor blood pressure
Hypothyroidism
Continue levothyroxine
Ambulatory dysfunction
wheel chair bound
PT/OT post surgery
DVT prophylaxis�aspirin 325 mg daily as per Ortho
Full code
Total time spent to see the patient on the floor, examine the patient, review data and lab results, discuss treatment plan with patient, nursing staff around 43 minutes.
Physical Exam
General: No acute distress
HEENT: Normocephalic, Atraumatic, EOMI, MMM
Respiratory: Clear to Auscultation bilaterally
Cardiac: Normal S1/S2, Regular Rate and Rhythm
GI: Soft, Nontender, Nondistended, Normal Bowel Sounds
Msk: Right hip incision dressed
Extremities: No Clubbing, Cyanosis
Neuro: Nonfocal/Grossly Intact
Psych: Pleasantly confused
Anticipated Discharge: Within 24 hours
Subjective/Interval History
-
Date of Service: April 27, 2025
Patient is pleasantly confused. She denies right hip pain. Denies chest pain, denies shortness of breath. No fever, no vomiting.
Objective Data
-
Labs:
Laboratory Results
04/27/25 04/27/25
03:30 06:00
WBC 16.8 H Cancelled
Hgb 11.2 L Cancelled
Hct 33.6 L Cancelled
Plt Count 141 Cancelled
Sodium 136
Potassium 4.5
Chloride 107
Carbon Dioxide 22
BUN 24 H
Creatinine 0.9
Glucose 123 H
Calcium 8.7
Vital Signs:
Vital Signs
Temp Pulse Resp BP Pulse Ox
98.2 F 76 18 126/58 95
04/27/25 08:30 04/27/25 08:30 04/27/25 08:30 04/27/25 08:30 04/27/25 08:30
I&O
04/26/25 04/27/25 04/28/25
06:59 06:59 06:59
Intake Total 100 / 100 280 / 280
Balance 100 / 100 280 / 280
--- NOTE | 2025-04-27 14:24 | CM ---
POD #1 R hip displaced femoral neck fracture with R hip cemented bipolar endoprosthesis. WBAT. 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 Therapy rec for SNF. Discharge POC: [facility] for SNF level of care. Referral previously forwarded.
[2025-04-27 14:39] LABS: Urine Character Clear (Clear)
--- NOTE | 2025-04-27 14:54 | PN.CDI ---
CDI
- -
CDI:
Physician Documentation Request
Admit Date: 04/25/25 13:15
Dear Doctor Do,
Please review the following and provide your response in the progress notes.
Clinical Indicators:
04/26 PROCEDURE:
#Right hip cemented bipolar endoprosthesis.
# During this procedure, estimated blood loss was 50 mL.
Laboratory Tests
04/25/25 04/26/25 04/27/25
10:42 12:30 03:30
RBC 4.50 4.02 L 3.45 L
Hgb 14.1 12.8 11.2 L
Hct 41.8 37.4 33.6 L
Based on the above and your clinical assessment, please clarify in the progress notes, the appropriate diagnosis, if significant, that supports the above abnormalities and additional evaluation, monitoring and/or treatment rendered:
Acute blood loss anemia
Abnormal lab value, clinically insignificant
Other(please specify)
Use of terms such as suspected, likely, concern for, or probable (associated with a specific diagnosis that is being evaluated, monitored, or treated as if it exists) are acceptable and can be coded in the inpatient setting, when documented at the
time of discharge.
Thank you,
Jennifer Sumner RN BSN CCDS
CDI Specialist
Please contact via tiger text
Please use your independent medical judgment in providing your response.
[2025-04-27 14:57] LABS: Urine Squamous Cell >30 /LPF (Few)
[2025-04-27 14:58] LABS: Urine Red Blood Cell 0-2 /HPF (0-2)
--- NOTE | 2025-04-27 14:59 | PN.CDI ---
CDI
- -
CDI:
Physician Documentation Request
Admit Date: 04/25/25 13:15
Dear Doctor Do,
Please review the following and provide your response in the progress notes.
Clinical Indicators:
PN, 04/27
#...presented after a mechanical fall, involving her falling from her wheelchair.
#...90% wheelchair-bound and she fell off from the wheelchair this morning.
#Right femoral neck displaced fracture status post right hip cemented bipolar endoprosthesis,
Home Medications
#...cholecalciferol (vitamin D3) 50 mcg (2,000 unit) tablet (Vitamin D3) 50 mcg PO DAILY
Based on the above and your clinical assessment, please clarify the etiology of the right femoral neck fracture:
Multifactorial, low level trauma and age related osteoporosis
Traumatic fracture, only
Other (Please specify)
Type Fracture
Age-related With current pathological fx
Drug induced (specify drug) without current pathological fx
Idiopathic
Osteoporosis of disuse
Due to post surgical malabsorption
Post traumatic
Post oophorectomy osteoporosis
Use of terms such as suspected, likely, concern for, or probable (associated with a specific diagnosis that is being evaluated, monitored, or treated as if it exists) are acceptable and can be coded in the inpatient setting, when documented at the
time of discharge.
Thank you,
Jennifer Sumner RN BSN CCDS
CDI Specialist
Please contact vi tiger text
Please use your independent medical judgment in providing your response.
--- NOTE | 2025-04-27 15:13 | PN.CDI ---
CDI
- -
CDI:
Physician Documentation Request
Admit Date: 04/25/25 13:15
Dear Doctor Do,
Please review the following and provide your response in the progress notes.
Clinical Indicators:
The diagnosis of, 'acute right pubic fracture', was included in the signed X ray report.
04/26 STUDY: CR Hip - RT w/wo Pel 2-3 Vw*
FINDINGS/IMPRESSION:
#...status post right hip hemiarthroplasty.
#...An acute right pubic fracture is redemonstrated.
Please indicate if the above diagnosis is valid for this patient:
Acute right pubic fracture is a valid diagnosis (Please include it in your progress notes)
Acute right pubic fracture is not a valid diagnosis for this patient
Acute right pubic fracture is not yet confirmed but remains a suspected condition
Other(please specify)
Use of terms such as suspected, likely, concern for, or probable are acceptable for a diagnosis that is being evaluated, monitored or treated as if it exists and can be coded in the inpatient setting, when documented at the time of discharge.
Thank you,
Jennifer Sumner RN BSN CCDS
CDI Specialist
Please contact via tiger text
Please use your independent medical judgment in providing your response.
[2025-04-27 15:34] VITALS: BP 122/54
[2025-04-27] MEDS: MELATONIN 5 MG PO (21:08)
[2025-04-27] MEDS: COLACE 100 MG PO (21:08)
[2025-04-27] MEDS: NAMENDA 10 MG PO (21:08)
[2025-04-27 23:32] VITALS: BP 109/61
[2025-04-28 05:13] VITALS: BMI 29.1
[2025-04-28] MEDS: SYNTHROID 100 MCG PO (05:47)
[2025-04-28 07:30] VITALS: BP 110/57
--- NOTE | 2025-04-28 07:42 | W.PN.HOSP.TC ---
Addendum entered and electronically signed by Chace Hansen MD 04/29/25 12:42:
Acute right pubic fracture is also multifactorial, due to low level trauma and age related osteoporosis
Original Note:
Today's Communication/Plan
-
Discharge today
Assessment / Plan
Assessment / Plan
Assessment/Plan
69-year-old female with history of hypothyroidism, essential hypertension, insomnia, dementia, presented after a mechanical fall, involving her falling from her wheelchair. Limited history from patient due to dementia. She has a legal guardian at
bedside. Patient resides at [facility]. Patient is 90% wheelchair-bound and she fell off from the wheelchair this morning.
Right femoral neck displaced fracture - Multifactorial, due to low level trauma and age related osteoporosis
Acute right pubic fracture
Mechanical fall
Hemodynamically stable
No active bleeding
CT head negative for trauma, stable large ventricles possible NPH
Patient was cleared for the surgery, benefits of surgery outweighs the risks as well -- Revised cardiac risks index less than 1%; NSQIP - low risk; STOPBANG- low
Appreciate orthopedic surgery input, status post right hip cemented bipolar endoprosthesis, on 04/26/[address] Malone
Pain control, laxatives, PT/OT
Continue aspirin 325 mg daily for 4 weeks for DVT prophylaxis thru 05/23/25
Medically stable for discharge back to [facility]-term care today
New Fever 04/26/25 morning
-No signs or symptoms of infection whatsoever i.e. no new joint swelling or redness, no cough/SOB, no abnormal urinary symptoms, no new skin redness, no concern for NET COORDINATOR infection
-Initial leukocytosis likely reactive, now has persistent leukocytosis secondary to dexamethasone
-Urine analysis/blood cultures negative
Acute blood loss anemia
- From surgery and fracture, mild, monitor
History of dementia
Continue memantine, melatonin
Has a legal guardian involved in the care
Not able to answer questions, speaking gibberish.
Essential hypertension
Hold lisinopril due to soft BP
Patient is normotensive without any medications, recommend permanently stopping lisinopril
Hypothyroidism
Continue levothyroxine
Ambulatory dysfunction
wheel chair bound
PT/OT post surgery
DVT prophylaxis�aspirin 325 mg daily as per Ortho
Full code
Physical Exam
General: No acute distress
HEENT: Normocephalic, Atraumatic, EOMI, MMM
Respiratory: Clear to Auscultation bilaterally
Cardiac: Normal S1/S2, Regular Rate and Rhythm
GI: Soft, Nontender, Nondistended, Normal Bowel Sounds
Msk: Right hip incision dressed
Extremities: No Clubbing, Cyanosis
Neuro: Nonfocal/Grossly Intact
Psych: Pleasantly confused
Anticipated Discharge: Today
Subjective/Interval History
-
Date of Service: April 27, 2025
Patient is pleasantly confused. She denies chest pain, denies shortness of breath. Denies right hip pain. No fever, no vomiting.
Objective Data
-
Labs:
Laboratory Results
04/27/25 04/27/25
03:30 06:00
WBC 16.8 H Cancelled
Hgb 11.2 L Cancelled
Hct 33.6 L Cancelled
Plt Count 141 Cancelled
Sodium 136
Potassium 4.5
Chloride 107
Carbon Dioxide 22
BUN 24 H
Creatinine 0.9
Glucose 123 H
Calcium 8.7
Vital Signs:
Vital Signs
Temp Pulse Resp BP Pulse Ox
98.2 F 76 18 126/58 95
04/27/25 08:30 04/27/25 08:30 04/27/25 08:30 04/27/25 08:30 04/27/25 08:30
I&O
04/26/25 04/27/25 04/28/25
06:59 06:59 06:59
Intake Total 100 / 100 280 / 280
Balance 100 / 100 280 / 280
[2025-04-28 08:02] LABS: Blood Urea Nitrogen 25 mg/dl (7-17); Calcium 8.9 mg/dl (8.4-10.2); Carbon Dioxide 29 mmol/L (22-30); Chloride 106 mmol/L (98-107); Estimated Creatinine Clearance 61 ml/min; Glucose 112 mg/dl (70-99); Hematocrit 30.9 % (37.0-47.0); Hemoglobin 10.5 g/dL (12.0-16.0); Mean Corp Hgb Conc. 34.0 g/dL (33.0-37.0); Mean Corpuscular Volume 95.7 fL (81.0-99.0); Platelet Count 149 10^3/uL (130-400); Red Cell Dist. Width 12.5 % (11.5-14.5); Sodium 138 mmol/L (135-145); eGFR > 60.00
[2025-04-28 08:12] LABS: Potassium 4.4 mmol/L (3.5-5.1)
--- NOTE | 2025-04-28 08:28 | W.PN.ORTHO ---
Today's Communication / Plan
-
Appreciate the primary team, continue Tx
Dispo likely SNF, appreciate CM
Trend Hgb, 10.5 this AM
Continue WBAT B/L LEs on walker/assistance
PT/OT, THPs x 6 weeks
Continue ASA 325mg daily x 4 weeks for DVT ppx
Pain control, avoid narcotics please
Dressing to remain 7-10 days post-op
[facility] out 2-3 weeks post-op (SNF or office)
If rebecca out at SNF outpatient Ortho follow-up 4 weeks
Assessment
.
Distal Motor Intact: Yes
Dressing:
Clean, dry and intact.
Assessment:
POD#2 Right hip mariano
Plan
.
Surgery / Date: Right hip Mariano/May 14 (Faisal)
DVT Prophylaxis: Aspirin
Activity:
Out of bed. WBAT RLE on walker
PT/OT, THPs
Discharge Plan: SNF (appreciate CM)
Subjective
.
.:
Patient resting comfortably. Did not respond to verbal stim, therefore DND
Vital Signs and Labs
.
Vital Signs and Labs:
Lab Results
04/28/25 06:30
04/28/25 06:30
Temp Pulse Resp BP Pulse Ox
98.3 F 64 18 109/61 90
04/27/25 15:34 04/27/25 23:32 04/27/25 23:32 04/27/25 23:32 04/27/25 23:32
Non-invasive Hgb result: 14.1
[2025-04-28] MEDS: BUSPAR 5 MG PO (09:52)
[2025-04-28] MEDS: ASPIRIN 325 MG PO (09:52)
[2025-04-28] MEDS: DEPAKENE 125 MG PO (09:53)
[2025-04-28] MEDS: DECADRON 4 MG PO (09:53)
[2025-04-28] MEDS: MOBIC 15 MG PO (09:53)
[2025-04-28] MEDS: COLACE 100 MG PO (09:53)
[2025-04-28] MEDS: VALTREX 500 MG PO (09:53)
[2025-04-28] MEDS: VITAMIN D3 (cholecalciferol) 50 MCG PO (09:53)
[2025-04-28] MEDS: TRIAMCINOLONE ACETONIDE 0.1% CREAM 1 APPLIC TOPICAL (09:54)
[2025-04-28] MEDS: ROXICODONE 5 MG PO (09:55)
[2025-04-28] MEDS: DESENEX/MITRAZOL/ZEASORB 1 APPLIC TOPICAL (09:56)
[2025-04-28] MEDS: SENOKOT 17.2 MG PO (10:00)
--- NOTE | 2025-04-28 11:06 | CM ---
Addendum entered by Smith Barros 04/28/25 11:39:
Transport scheduled for 12:30 PM. LP liaison and Guardian notified of transport. Guardian notified of IMM.
Original Note:
Patient has been medically cleared for discharge back to [facility]. Therapy has recommended long-term and rehab services. [facility] liaison aware. Requesting ambulance transport.
Nurse Report #: [phone]
Fax #: [phone]
[2025-04-28 12:30] VITALS: BP 118/50
--- NOTE | 2025-04-28 14:18 | W.DCSUMMARY ---
Discharge Summary
Discharge Data
Date of Admission: 04/25/25
Date of Discharge: 04/28/25
-
Pending Results: No
Hospital Course
Discharge diagnosis:
Acute right femoral neck displaced fracture, due to low-level trauma and age related osteoporosis
Acute right pubic fracture
Mechanical fall
Postoperative fever
Leukocytosis
Acute blood loss anemia
History of dementia
Essential hypertension
Hypothyroidism
Ambulatory dysfunction
Consults: Orthopedic surgery
Procedures:
04/26/2025 Right hip cemented bipolar endoprosthesis, on 04/26/[address] Malone
Hospital course:
70-year-old female with a past medical history of dementia, ambulatory dysfunction, and hypothyroidism who was admitted for a right femoral neck fracture and right pubic fracture. Patient was seen in conjunction with orthopedic surgery, and
underwent right hip cemented bipolar endoprosthesis on 04/26/2025.
Patient was noted to have a post-fever on 04/26/2025. Blood cultures were negative, urine analysis also negative. Her fever resolved. She did have a leukocytosis upon admission, that was likely reactive. She received dexamethasone by orthopedic
surgery after her surgery. Her leukocytosis persisted, likely from the steroids.
Patient is medically stable for discharge. Orthopedic surgery recommends continuing aspirin 325 mg daily for 4 weeks for DVT prophylaxis through 05/23/2025. She needs to follow-up with her PCP in less than 1 week, and orthopedic surgery in the office
in 2 weeks.
Disposition: [facility]
Discharge planning: Required 36 minutes
Discharge Plan
-
Patient Disposition: Penitentiary[facility]SNF
Discharge Diagnosis/Procedures: Right femoral neck fracture status post surgery, leukocytosis, fever, dementia
Condition: Good
Diet: Regular
Activity: As tolerated
Activity Restrictions/Additional Instructions:
Continue aspirin 325 mg daily for 4 weeks for blood clot prevention thru 05/23/25.
Please follow-up with your primary care provider in less than 1 week, and orthopedic surgery in 2 weeks.
Referrals:
Praveen Malone MD [Active, Orthopedics] - in two weeks
Sai Avendano MD [Family Provider, Family Practice] - in less than 1 week
Prescriptions:
New
aspirin 325 mg Tablet
325 mg PO DAILY 25 Days Qty: 0 0RF
miconazole nitrate [Miconazorb AF] 2 % Powder
1 applic topical BID Qty: 85 0RF
oxycodone 5 mg Tablet
5 mg PO Q4HPRN PRN (Reason: moderate-severe pain) Qty: 3 0RF
sennosides-docusate sodium [Senna-S] 8.6-50 mg tablet
2 tab-cap PO BID Qty: 120 0RF
Continued
acetaminophen [Tylenol] 325 mg Tablet
650 mg PO Q6HPRN PRN (Reason: moderate pains)
valacyclovir 500 mg Tablet
500 mg PO DAILY
memantine 5 mg Tablet
10 mg PO HS
melatonin 5 mg Tablet
5 mg PO HS
cholecalciferol (vitamin D3) [Vitamin D3] 50 mcg (2,000 unit) Tablet
50 mcg PO DAILY
meloxicam 15 mg Tablet
15 mg PO DAILY
magnesium hydroxide [Milk of Magnesia] 400 mg/5 mL Suspension
2,400 mg PO HSPRN PRN (Reason: if no bm by 3rd day)
bisacodyl [Dulcolax (bisacodyl)] 10 mg Suppository
10 mg [place] DAILYPRN PRN (Reason: if no bm aftr mom)
buspirone 5 mg Tablet
5 mg PO BID
triamcinolone acetonide 0.1 % Cream
1 applic TOPICAL DAILY
levothyroxine 100 mcg capsule
100 mcg PO DAILY
valproic acid (as sodium salt) 250 mg/5 mL (5 mL) solution
125 mg PO TID
Discontinued
lisinopril 10 mg Tablet
5 mg PO DAILY
Discharge Orders:
Discharge Patient (As Directed); Ordered 04/28/25
Ordered By: Chace Hansen
Discharge Date and Time
Discharge Date/Time: 04/28/25 12:44
Print Language: HONG KONGER
--- NOTE | 2025-04-29 12:32 | PN.CDI ---
CDI
- -
CDI:
Physician Documentation Request
Admit Date: 04/25/25 13:15
Dear Doctor Do,
Please review the following and provide your response in the progress notes.
Clinical Indicators:
PN, 04/28
#Right femoral neck displaced fracture
#...- Multifactorial, due to low level trauma and age related osteoporosis
#Acute right pubic fracture
#...Mechanical fall
Please clarify the following regarding the etiology of the Acute Right Pubic Fracture:
Multifactorial, low level trauma and age related osteoporosis
Traumatic fracture, only
Other (Please specify)
Type Fracture
Age-related With current pathological fx
Drug induced (specify drug) without current pathological fx
Idiopathic
Osteoporosis of disuse
Due to post surgical malabsorption
Post traumatic
Post oophorectomy osteoporosis
Other (please specify)
Use of terms such as suspected, likely, concern for, or probable (associated with a specific diagnosis that is being evaluated, monitored, or treated as if it exists) are acceptable and can be coded in the inpatient setting, when documented at the
time of discharge.
Thank you,
Jennifer Sumner RN BSN CCDS
CDI Specialist
Please contact via tiger text
Please use your independent medical judgment in providing your response.
== END 2025-04-28 12:44 | DRG 522 ==
LOC: 2 NORTH 13:15
PROVIDERS: Nurse Practitioner Family; Physician Assistant; Student in an Organized Health Care Education/Training Program; ADMITTING PHYSICIAN Hospitalist; ATTENDING PHYSICIAN Family Medicine; CONSULT PHYSICIAN Specialist; EMERGENCY PHYSICIAN Emergency Medicine; FAMILY PHYSICIAN Family Medicine
PROC: 0SRR019 Replacement of Right Hip Joint, Femoral Surface with Metal Synthetic Substitute, Cemented, Open Approach (ICD-10-PCS; 2025-04-26)
DX: M80.051A Age-related osteoporosis with current pathological fracture, right femur, initial encounter for fracture (principal); D62 Acute posthemorrhagic anemia; F02.C3 Dementia in other diseases classified elsewhere, severe, with mood disturbance; M80.0B1A Age-related osteoporosis with current pathological fracture, right pelvis, initial encounter for fracture; W05.0XXA Fall from non-moving wheelchair, initial encounter; E03.9 Hypothyroidism, unspecified; I10 Essential (primary) hypertension; G30.9 Alzheimer's disease, unspecified; C73 Malignant neoplasm of thyroid gland; M48.00 Spinal stenosis, site unspecified; R50.82 Postprocedural fever; Z99.3 Dependence on wheelchair; Z79.899 Other long term (current) drug therapy
CPT/HCPCS: 70450; 73502; 80048; 81003; 81015; 82040; 85025; 85027; 87040; 96374; 97163; 97167; 99285; C1713; C1776